=== PATIENT | female | born 1960 | race Hispanic/Latino ===

== ENCOUNTER 2016-10-10 11:19 | Inpatient (IN) | payer MEDICARE, OTHER ==
[2016-10-10] MEDS ORDERED: Sodium Chloride 0.9% 1,000 ML IV STA ×2 (11:58→16:20)
[2016-10-10 11:59] VITALS: BMI 24.3
[2016-10-10] MEDS ORDERED: Iohexol 240 (50 ml) ONE (12:06)
--- NOTE | 2016-10-10 12:14 | ED PDOC ---
Arrival/HPI - General Chief Complaint: Abdominal Pain Time Seen by Provider: 10/10/16 11:40 Historian: Patient - History of Present Illness Narrative History of Present Illness (Text): 10/10/16 12:11 55 year old female whose past medical history includes H pylori, diverticulitis , presents to the emergency department with constipation and lower abdominal pain for the past week. Patient states she has not had a bowel movement in over a week and was seen at [facility] but discharged home. She states she had a CT scan which showed her "bowels were obstructed." Patient states she has tried Miralax , Ducolax, and enema with no improvement. She states she ate a biscuit today. Denies other complaints. Patient requesting medication for anxiety. PMD: Dr. Meza Time/Duration: > week Symptom Onset: Gradual Symptom Course: Unchanged Associated Symptoms (Text): None Past Medical History - Provider Review Nursing Documentation Reviewed: Yes - Infectious Disease Hx of Infectious Diseases: None - Tetanus Immunization Tetanus Immunization: Unknown - Cardiac Hx Hypertension: Yes Hx Pacemaker: No - Neurological Hx Paralysis: No - Hematological/Oncological Hx Blood Transfusions: No - Musculoskeletal/Rheumatological Hx Musculoskeletal Disorders: Yes Other/Comment: DJD - Gastrointestinal Hx Diverticulitis: Yes Other/Comment: Hpylori - Genitourinary/Gynecological Hx Genitourinary Disorders: No - Psychiatric Hx Anxiety: Yes Hx Emotional Abuse: No Hx Physical Abuse: No Hx Substance Use: No - Surgical History Hx Section: Yes Other/Comment: breast augmentation - Anesthesia Hx Anesthesia Reactions: No Hx Malignant Hyperthermia: No - Suicidal Assessment Feels Threatened In Home Enviroment: No Family/Social History - Physician Review Nursing Documentation Reviewed: Yes Family/Social History: Unknown Family HX Smoking Status: Never Smoked Hx Alcohol Use: No Hx Substance Use: No Hx Substance Use Treatment: No Allergies/Home Meds Allergies/Adverse Reactions: Allergies iodine Allergy (Verified 10/10/16 11:35) ANAPHYLAXIS lidocaine Allergy (Verified 10/10/16 11:35) ANAPHYLAXIS CRABS Allergy (Severe, Uncoded 10/10/16 11:35) ANAPHYLAXIS Home Medications: Home Meds Medication Instructions Recorded Confirmed Alprazolam [Xanax] 2 mg PO TID 09/07/14 10/10/16 Losartan [Cozaar] 50 mg PO DAILY 10/10/16 10/10/16 Omeprazole Magnesium [Prilosec] 10 mg PO DAILY 10/10/16 10/10/16 Zolpidem [Ambien] 5 mg PO HS 10/10/16 10/10/16 Review of Systems - Physician Review All systems were reviewed & negative as marked: Yes - Review of Systems Respiratory: absent: SOB Cardiovascular: absent: Chest Pain Gastrointestinal: Abdominal Pain (lower), Constipation. absent: Diarrhea, Nausea Genitourinary Female: absent: Dysuria, Frequency, Hematuria Musculoskeletal: absent: Back Pain Physical Exam Vital Signs Reviewed: Yes Vital Signs Temp Pulse Resp BP Pulse Ox 10/10/16 17:08 64 18 115/71 98 10/10/16 15:17 66 18 111/69 98 10/10/16 13:25 68 18 112/75 98 10/10/16 12:31 69 18 116/77 98 10/10/16 11:20 98.6 F 73 15 114/69 98 Temperature: Afebrile Blood Pressure: Normal Pulse: Regular Respiratory Rate: Normal Appearance: Positive for: Well-Appearing, Non-Toxic, Comfortable Pain Distress: None Mental Status: Positive for: Alert and Oriented X 3 - Systems Exam Head: Present: Atraumatic, Normocephalic Pupils: Present: PERRL Extroacular Muscles: Present: EOMI Conjunctiva: Present: Normal Mouth: Present: Moist Mucous Membranes Neck: Present: Normal Range of Motion Respiratory/Chest: Present: Clear to Auscultation, Good Air Exchange. No: Respiratory Distress, Accessory Muscle Use Cardiovascular: Present: Regular Rate and Rhythm, Normal S1, S2. No: Murmurs Abdomen: Present: Tenderness (Mild suprapubic and LLQ tenderness), Normal Bowel Sounds. No: Distention, Peritoneal Signs Back: Present: Normal Inspection Upper Extremity: Present: Normal Inspection. No: Cyanosis, Edema Lower Extremity: Present: Normal Inspection. No: Edema Neurological: Present: GCS=15, CN II-XII Intact, Speech Normal Skin: Present: Warm, Dry, Normal Color. No: Rashes Psychiatric: Present: Alert, Oriented x 3, Normal Insight, Normal Concentration Medical Decision Making ED Course and Treatment: Impression: 55 year old female whose past medical history includes H pylori, diverticulitis, presents to the emergency department with constipation and lower abdominal pain for the past week. Differential Diagnosis include but are not limited to: Bowel obstruction vs constipation Plan: -- CT Abdomen/Pelvis, EKG -- Xanax -- IV fluids -- Labs -- Reassess and disposition Prior Visits: Notes and results from previous visits were reviewed. Patient last seen in ED on 09/07/14 for abdominal pain and discharged home. Progress Notes: - Lab Interpretations Lab Results: 10/10/16 12:00 10/10/16 12:00 Lab Results 10/10/16 14:00: Urine Color Yellow, Urine Appearance Clear, Urine pH 6.0, Ur Specific [place] 1.020, Urine Protein Negative, Urine Glucose (UA) Negative, Urine Ketones Negative, Urine Blood Negative, Urine Nitrate Negative, Urine Bilirubin Negative, Urine Urobilinogen 0.2, Ur Leukocyte Esterase Negative 10/10/16 12:00: Sodium 140, Potassium 3.7, Chloride 106, Carbon Dioxide 27, Anion Gap 11, BUN 13, Creatinine 0.7, Est GFR ( Amer) > 60, Est GFR (Non- Af Amer) > 60, Random Glucose 103, Calcium 9.6, Total Bilirubin 0.8, AST 19, ALT 30, Alkaline Phosphatase 79, Total Protein 6.8, Albumin 3.8, Globulin 2.9, Albumin/Globulin Ratio 1.3, Lipase 87 10/10/16 12:00: WBC 4.3 L D, RBC 4.49, Hgb 13.6, Hct 39.6, MCV 88.2, MCH 30.3, MCHC 34.3, RDW 12.5, Plt Count 276, MPV 10.6, Gran % 61.8, Lymph % (Auto) 31.2, [place] % (Auto) 5.3, Eos % (Auto) 1.2 L, Baso % (Auto) 0.5, Gran # 2.66, Lymph # 1.3, [place] # 0.2, Eos # 0.1, Baso # 0.02 - RAD Interpretation Radiology Orders: 10/10/16 11:58 ABD & PELVIS PO CONTRAST ONLY [CT] Stat - Medication Orders Current Medication Orders: Discontinued Medications Alprazolam (Xanax) 2 mg PO STAT STA PRN Reason: Protocol Stop: 10/10/16 12:00 Last Admin: 10/10/16 12:14 Dose: 2 mg Sodium Chloride (Sodium Chloride 0.9%) 1,000 mls @ 1,000 mls/hr IV .Q1H STA Stop: 10/10/16 12:57 Last Admin: 10/10/16 12:14 Dose: 1,000 mls/hr Sodium Chloride (Sodium Chloride 0.9%) 1,000 mls @ 999 mls/hr IV .Q1H1M STA Stop: 10/10/16 17:20 Last Admin: 10/10/16 16:34 Dose: 999 mls/hr Iohexol (Omnipaque 240 (50 Ml)) Confirm Administered Dose 50 ml .ROUTE .STK-MED ONE Stop: 10/10/16 12:07 - Scribe Statement The provider has reviewed the documentation as recorded by the Eugenia Beltran Provider Scribe Attestation: All medical record entries made by the Eugenia were at my direction and personally dictated by me. I have reviewed the chart and agree that the record accurately reflects my personal performance of the history, physical exam, medical decision making, and the department course for this patient. I have also personally directed, reviewed, and agree with the discharge instructions and disposition. Disposition/Present on Arrival - Present on Arrival Any Indicators Present on Arrival: No History of DVT/PE: No History of Uncontrolled Diabetes: No Urinary Catheter: No History of Decub. Ulcer: No History Surgical Site Infection Following: None - Disposition Have Diagnosis and Disposition been Completed?: Yes Diagnosis: Small bowel intussusception Disposition: HOSPITALIZED Disposition Time: 15:30 Condition: STABLE Referrals: Tuyet Liriano MD [Primary Care Provider] - Follow up with primary
[2016-10-10 12:18] LABS: ADD MANUAL DIFF? NO
[2016-10-10 12:40] LABS: ALB/GLOB RATIO 1.3 (1.1-1.8); ALKALINE PHOSPHATASE 79 U/L (38-133); ALT/SGPT 30 U/L (7-56); AST/SGOT 19 U/L (15-39); BILIRUBIN,TOTAL 0.8 mg/dL (0.2-1.3); BLOOD UREA NITROGEN 13 mg/dL (7-21); CALCIUM 9.6 mg/dL (8.4-10.5); CARBON DIOXIDE 27 mmol/L (21-33); CHLORIDE 106 mmol/L (98-107); GFR AFRICAN-AMERICAN > 60; GLUCOSE,RANDOM 103 mg/dL (70-110); LIPASE 87 U/L (23-300); POTASSIUM 3.7 mmol/L (3.6-5.0); SODIUM 140 mmol/L (132-148); TOTAL PROTEIN 6.8 g/dL (5.8-8.3)
[2016-10-10 12:42] LABS: BASO # 0.02 K/mm3 (0.0-2.0); BASO % 0.5 % (0.0-3.0); EOS # 0.1 (0.0-0.7); EOS % 1.2 % (1.5-5.0); GRAN # 2.66 (1.4-6.5); GRAN % 61.8 % (50.0-68.0); HEMATOCRIT 39.6 % (36.0-48.0); LYMPH # 1.3 (1.2-3.4); LYMPH % 31.2 % (22.0-35.0); MEAN CELL VOLUME 88.2 fL (80.0-105.0); MEAN CORPUSCULAR HEMOGLOBIN 30.3 pg (25.0-35.0); MEAN CORPUSCULAR HGB CONC 34.3 g/dl (31.0-37.0); MEAN PLATELET VOLUME 10.6 fl (7.0-11.0); MONO # 0.2 (0.1-0.6); MONO % 5.3 % (1.0-6.0); PLATELET COUNT 276 10^3/uL (120.0-450.0); RED CELL DISTRIBUTION WIDTH 12.5 % (11.5-14.5); WHITE BLOOD COUNT 4.3 10^3/ul (4.5-11.0)
[2016-10-10 14:14] LABS: URINE APPEARANCE CLEAR (CLEAR); URINE BILIRUBIN NEGATIVE (NEGATIVE); URINE BLOOD NEGATIVE (NEGATIVE); URINE COLOR YELLOW (YELLOW); URINE GLUCOSE (UA) NEGATIVE (NEGATIVE); URINE KETONE NEGATIVE (NEGATIVE); URINE LEUKOCYTE ESTERASE NEGATIVE Leu/uL (NEGATIVE); URINE PROTEIN NEGATIVE mg/dL (<30 mg/dL); URINE UROBILINOGEN 0.2 E.U./dL (<1 E.U./dL)
--- NOTE | 2016-10-10 15:02 | CT ---
PROCEDURE: CT Abdomen and Pelvis without IV contrast. HISTORY: lower abd pain ? obstruction vs. diverticulitis COMPARISON: CT abdomen and pelvis without IV contrast performed 09/07/14 TECHNIQUE: Contiguous axial images of the abdomen and pelvis. Oral contrast was administered. No IV contrast given. Coronal and Sagittal reformats generated and reviewed. Radiation dose: Total exam DLP = 481.77 mGy-cm. This CT exam was performed using one or more of the following dose reduction techniques: Automated exposure control, adjustment of the mA and/or kV according to patient size, and/or use of iterative reconstruction technique. FINDINGS: There is limited evaluation of the solid organs without the administration of IV contrast. LOWER THORAX: Mild right middle lobe atelectasis. There is no visible pleural effusion or pneumothorax. Limited visualization of the heart appears within normal limits of size. Small right cardiophrenic fluid. Small hiatal hernia. LIVER: Unremarkable unenhanced appearance. GALLBLADDER AND BILE DUCTS: Unremarkable unenhanced appearance. PANCREAS: Unremarkable unenhanced appearance. SPLEEN: Unremarkable unenhanced appearance. ADRENALS: Unremarkable unenhanced appearance. KIDNEYS AND URETERS: No hydronephrosis or obstructing renal calculus. BLADDER: The urinary bladder appears unremarkable. REPRODUCTIVE: Uterus is present. APPENDIX: The appendix appears within normal limits of caliber. No secondary signs of acute appendicitis. BOWEL: The stomach is nondistended. The bowel loops appear within normal limits of caliber without evidence of intestinal obstruction. Suspect small bowel intussusception within the left upper quadrant (for example, coronal image 56). Duodenal wall thickening ; correlate clinically for infectious or inflammatory etiologies. Diverticulosis of the left/rectosigmoid colon with mild wall thickening ; correlate clinically for diverticulitis. PERITONEUM: No significant free fluid. No definite free air. LYMPH NODES: No bulky lymphadenopathy identified. VASCULATURE: No aortic aneurysm. BONES: No acute osseous abnormality is detected. OTHER FINDINGS: None. IMPRESSION: Evidence of small bowel intussusception within the left upper quadrant. Duodenal wall thickening ; correlate clinically for infectious or inflammatory etiologies. Diverticulosis of the left/rectosigmoid colon with mild wall thickening ; correlate clinically for diverticulitis. Additional findings as above.
--- NOTE | 2016-10-10 18:35 | CARD ---
APPROVED REPORT EKG Measurement Heart [id number] [id number] <Conclusion> Normal sinus rhythm Normal ECG
--- NOTE | 2016-10-10 18:36 | CP.PCM.CON ---
History of Present Illness - History of Present Illness History of Present Illness: Gen Sx Consult: Dr Stringer Pt is a 55F with PMH of gastritis, IBS and depression. Pt presents to [facility] after recently being discharged from [facility]. Pt states at [facility] she was told she had an intestinal blockage, and then was discharged. She states she has not had a BM in 1 week. Currently, she denies any abdominal pain, nausea, vomiting , fevers, chills, sob, chest pain, or diarrhea. Her only complaint is constipation. She states she regularly sees Dr Eason and is currently on Linzess for her IBS. Typically it is routine for her to have at least one BM per day with the use of medications. PT is passing flatus and was tolerating diet before arrival. Pt also states she has been off of psychiatric medications and would like to speak to a psychologist. CT scan was read as intussusception so surgery was consulted. Review of Systems - Review of Systems All systems: reviewed and no additional remarkable complaints except (as per hpi ) Past Patient History - Infectious Disease Hx of Infectious Diseases: None - Tetanus Immunizations Tetanus Immunization: Unknown - Past Social History Smoking Status: Never Smoked - CARDIAC Hx Hypertension: Yes Hx Pacemaker: No - NEUROLOGICAL Hx Paralysis: No - HEMATOLOGICAL/ONCOLOGICAL Hx Blood Transfusions: No - MUSCULOSKELETAL/RHEUMATOLOGICAL Hx Musculoskeletal Disorders: Yes Other/Comment: DJD - GASTROINTESTINAL Hx Diverticulitis: Yes Other/Comment: Hpylori - GENITOURINARY/GYNECOLOGICAL Hx Genitourinary Disorders: No - PSYCHIATRIC Hx Anxiety: Yes Hx Emotional Abuse: No Hx Physical Abuse: No Hx Substance Use: No - SURGICAL HISTORY Hx Section: Yes Other/Comment: breast augmentation - ANESTHESIA Hx Anesthesia Reactions: No Hx Malignant Hyperthermia: No Meds Allergies/Adverse Reactions: Allergies Allergy/AdvReac Type Severity Reaction Status Date / Time iodine Allergy ANAPHYLAXIS Verified 10/10/16 11:35 lidocaine Allergy ANAPHYLAXIS Verified 10/10/16 11:35 CRABS Allergy Severe ANAPHYLAXIS Uncoded 10/10/16 11:35 Physical Exam - Constitutional Appears: Non-toxic, No Acute Distress - Head Exam Head Exam: NORMOCEPHALIC - ENT Exam ENT Exam: Normal Exam - Respiratory Exam Respiratory Exam: absent: Accessory Muscle Use, Respiratory Distress - Cardiovascular Exam Cardiovascular Exam: REGULAR RHYTHM. absent: Tachycardia - GI/Abdominal Exam GI & Abdominal Exam: Soft. absent: Distended, Firm, Guarding, Hernia, Mass, Rebound, Rigid, Tenderness - Rectal Exam Rectal Exam: absent: Deferred - Extremities Exam Extremities exam: Negative for: pedal edema - Neurological Exam Neurological exam: Alert, Oriented x3 - Psychiatric Exam Psychiatric exam: Normal Affect, Normal Mood - Skin Skin Exam: Normal Color, Warm Results - Vital Signs Recent Vital Signs: Last Vital Signs Temp 98.6 F 10/10/16 11:20 Pulse 64 10/10/16 17:08 Resp 18 10/10/16 17:08 BP 115/71 10/10/16 17:08 Pulse Ox 98 10/10/16 17:08 - Labs Result Diagrams: 10/10/16 12:00 10/10/16 12:00 Assessment & Plan - Assessment and Plan (Free Text) Assessment: 55F admitted for constipation; CT concerning for intussusception Plan: will give mineral oil enema pt currently asymptomatic keep NPO, IV fluids will re-evaluate in AM will d/w attending Justin Jones DO, PGY2 - Date & Time Date: 10/11/16 Time: 05:47
[2016-10-10] MEDS ORDERED: Non Formulary Medication (Alprazolam [Xanax] 0.5 MG) PO PRN (18:54)
[2016-10-10] MEDS ORDERED: Dextrose 5%/0.45% NS 1,000 ML IV SCH (19:00)
--- NOTE | 2016-10-10 20:14 | HP ---
HISTORY OF PRESENT ILLNESS: The patient is a 55-year-old patient of Dr. Carrillo who [facility] because of left lower quadrant abdominal pain going on for the last 2-3 days. The patient sta aristeo she had these symptoms for 2 days, went to [facility] and they did CAT scan, but is not aware of the results. So she was discharged without any medication. The patient said actuall y the pain started almost a week ago. The patient does mention that she has constipation going on fo r almost a week. The patient denies any fever or chills. No history of rectal bleeding, no hemoptys is, hematemesis. SIGNIFICANT PAST MEDICAL HISTORY: 1. Diverticulosis and Helicobacter pylori. 2. History of anxiety disorder. 3. Hypertension. ALLERGIES: IODINE, LIDOCAINE, AND CRAB MEAT. SOCIAL HISTORY: Denies smoking, drinking or alcohol use. REVIEW OF SYSTEMS: Significant for abdominal discomfort and constipation. PHYSICAL EXAMINATION: GENERAL: She is awake and alert, communicative. VITAL SIGNS: She is afebrile, pulse 64, respirations 18, blood pressure 115/71. LUNGS: Bilateral fair airflow, no rhonchi or crackle. HEART: S1, S2 audible. ABDOMEN: Soft. Left lower quadrant discomfort. No rebound, no guarding. NEUROLOGIC: She is awake and alert, communicative. LABORATORY DATA: WBC is 4.3, hemoglobin 13.6, hematocrit 39.6, platelet 276. Chemistry: Sodium 140 , potassium 3.7, chloride 106, CO2 27, BUN 13, creatinine 0.7, blood sugar of 103. LFTs are within n ormal limits. Urinalysis is unremarkable. She had CT scan of the abdomen and pelvis done that shows evidence of small bowel intussusception within the left upper quadrant, there is no wall thickening, diverticulosis of the rectosigmoid colon with mild wall thickening. ASSESSMENT: 1. Questionable diverticulitis. 2. Intussusception left upper quadrant. 3. Anxiety disorder. 4. Hypertension. 5. Small bowel intussusception in the left upper quadrant. PLAN: We will keep patient n.p.o., give IV fluids, Protonix 40 IV has been requested, Zofran as need ed. GI consult by Dr. Eldridge and surgical consult by Dr. Brennan has been requested. Will reeval uate the patient in a.m. Silvina Wright MD cc: [phone] TT: 10/10/2016 20:13:02 jn
[2016-10-10] MEDS ORDERED: Mineral Oil Enema 135 ml RC ONE (20:35)
[2016-10-10] MEDS: metroNIDAZOLE IV 500 mg/100 ml 500 MG/100 ML BAG IVPB SCH (22:12)
[2016-10-11] MEDS: metroNIDAZOLE IV 500 mg/100 ml 500 MG/100 ML BAG IVPB SCH ×3 (05:46→21:42)
--- NOTE | 2016-10-11 06:19 | CP.PCM.PN ---
Subjective - Date & Time of Evaluation Date of Evaluation: 10/11/16 Time of Evaluation: 06:17 - Subjective Subjective: Gen Sx: Dr Stringer Pt S&E. NAEO. Reports unable to sleep. Requesting psychiatric evaluation. Pt did not have BM after enema. Denies abdominal pain, n/v, f/c. Passing flatus. Objective - Vital Signs/Intake and Output Vital Signs (last 24 hours): Temp Pulse Resp BP Pulse Ox 98 F 58 L 18 137/90 100 10/10/16 18:15 10/10/16 18:15 10/10/16 18:15 10/10/16 18:15 10/10/16 18:15 Intake and Output: 10/10/16 10/11/16 18:59 06:59 Intake Total 0 Balance 0 - Medications Medications: Current Medications Alprazolam (Xanax) 0.5 mg PO TID PRN PRN Reason: Anxiety Last Admin: 10/10/16 22:12 Dose: 0.5 mg Dextrose/Sodium Chloride (Dextrose 5%/0.45% Ns 1000 Ml) 1,000 mls @ 100 mls/hr IV .Q10H IAN Metronidazole (Flagyl) 500 mg in 100 mls @ 100 mls/hr IVPB Q8 IAN PRN Reason: Protocol Last Admin: 10/11/16 05:46 Dose: 100 mls/hr Ceftriaxone Sodium (Rocephin 1 Gram Ivpb) 1 gm in 100 mls @ 100 mls/hr IVPB DAILY IAN PRN Reason: Protocol Ondansetron HCl (Zofran Inj) 4 mg IVP Q6H PRN PRN Reason: Nausea/Vomiting Pantoprazole Sodium (Protonix Inj) 40 mg IVP DAILY [facility] Zolpidem Tartrate (Ambien) 5 mg PO HS IAN PRN Reason: Protocol Last Admin: 10/10/16 22:32 Dose: 5 mg - Constitutional Appears: Non-toxic, No Acute Distress - Head Exam Head Exam: NORMOCEPHALIC - ENT Exam ENT Exam: Mucous Membranes Moist - Respiratory Exam Respiratory Exam: absent: Accessory Muscle Use, Respiratory Distress - GI/Abdominal Exam GI & Abdominal Exam: Soft, Normal Bowel Sounds. absent: Distended, Firm, Guarding, Rigid, Tenderness, Hernia, Mass - Neurological Exam Neurological Exam: Alert, Awake, Oriented x3 - Psychiatric Exam Psychiatric exam: Anxious - Skin Skin Exam: Normal Color, Warm Assessment and Plan - Assessment and Plan (Free Text) Assessment: 55F with constipation; r/o intussusception Plan: maintain NPO w/ IV fluids continue to monitor will re-evaluate throughout the day recc. psych consult further recommendations to follow will d/w Dr Myke Jones, DO, PGY2
[2016-10-11 07:34] LABS: ADD MANUAL DIFF? NO
[2016-10-11 07:41] LABS: BASO # 0.02 K/mm3 (0.0-2.0); BASO % 0.5 % (0.0-3.0); EOS # 0.1 (0.0-0.7); EOS % 1.9 % (1.5-5.0); GRAN # 1.68 (1.4-6.5); GRAN % 39.6 % (50.0-68.0); HEMATOCRIT 35.2 % (36.0-48.0); LYMPH # 2.1 (1.2-3.4); LYMPH % 50.5 % (22.0-35.0); MEAN CELL VOLUME 87.8 fL (80.0-105.0); MEAN CORPUSCULAR HEMOGLOBIN 29.4 pg (25.0-35.0); MEAN CORPUSCULAR HGB CONC 33.5 g/dl (31.0-37.0); MEAN PLATELET VOLUME 10.1 fl (7.0-11.0); MONO # 0.3 (0.1-0.6); MONO % 7.5 % (1.0-6.0); PLATELET COUNT 223 10^3/uL (120.0-450.0); RED CELL DISTRIBUTION WIDTH 12.5 % (11.5-14.5); WHITE BLOOD COUNT 4.2 10^3/ul (4.5-11.0)
[2016-10-11 07:58] LABS: ALB/GLOB RATIO 1.2 (1.1-1.8); ALKALINE PHOSPHATASE 67 U/L (38-133); ALT/SGPT 38 U/L (7-56); AST/SGOT 17 U/L (15-39); BILIRUBIN,TOTAL 0.8 mg/dL (0.2-1.3); BLOOD UREA NITROGEN 7 mg/dL (7-21); CALCIUM 8.7 mg/dL (8.4-10.5); CARBON DIOXIDE 24 mmol/L (21-33); CHLORIDE 109 mmol/L (95-110); GFR AFRICAN-AMERICAN > 60; GLUCOSE,RANDOM 89 mg/dL (70-110); POTASSIUM 3.5 mmol/L (3.6-5.0); SODIUM 139 mmol/L (132-148); TOTAL PROTEIN 5.6 g/dL (5.8-8.3)
[2016-10-11 08:20] LABS: FREE T4 1.09 ng/dL (0.78-2.19)
[2016-10-11 08:34] LABS: THYROID STIMULATING HORMONE 2.16 mIU/mL (0.46-4.68)
[2016-10-11] MEDS: cefTRIAXone 1 gm 1 GM/100 ML BAG IVPB SCH (09:44)
[2016-10-11] MEDS ORDERED: Non Formulary Medication (Alprazolam [Xanax] 0.5 MG) PO SCH (10:00)
--- NOTE | 2016-10-11 11:01 | RAD ---
HISTORY: r/o obstruction COMPARISON: No prior. FINDINGS: BOWEL: Normal. No obstruction. No free air. There is some residual contrast in the colon which is normal in caliber. BONES: Normal. OTHER FINDINGS: None. IMPRESSION: No active disease.
--- NOTE | 2016-10-11 12:53 | CP.PCM.CON ---
<Stiven Chaparro - Last Filed: 10/11/16 16:14> History of Present Illness - History of Present Illness History of Present Illness: GI consult for Dr. Eldridge Pt is a 55F with PMH of Colon Polyps, gastritis, IBS and depression presents to [facility] with constipation. Pt states she was recently [place] [facility] [place] and then was discharged with OTC enema. She states she has not had a BM in 1 week. Currently, she denies any abdominal pain, nausea, vomiting , fevers, chills, sob, chest pain, or diarrhea. She states she regularly sees Dr Eason and is currently on Linzess for her IBS. Typically it is routine for her to have at least one BM per day with the use of medications. PT is passing flatus and was tolerating diet before arrival. Pt also states she has been off of psychiatric medications and would like to speak to a psychologist. CT scan was read as intussusception. PMH: Colon polyps, Gastiritis, H-pylori, IBS PSH: c-scope, EGD, , Ovarian cyst removal Fx: Colon CA Review of Systems - Review of Systems Review of Systems: See HPI Past Patient History - Infectious Disease Hx of Infectious Diseases: None - Tetanus Immunizations Tetanus Immunization: Unknown - Past Social History Smoking Status: Never Smoked - CARDIAC Hx Hypertension: Yes Hx Pacemaker: No - NEUROLOGICAL Hx Paralysis: No - HEMATOLOGICAL/ONCOLOGICAL Hx Blood Transfusions: No - MUSCULOSKELETAL/RHEUMATOLOGICAL Hx Musculoskeletal Disorders: Yes Other/Comment: DJD - GASTROINTESTINAL Hx Diverticulitis: Yes Other/Comment: Hpylori - GENITOURINARY/GYNECOLOGICAL Hx Genitourinary Disorders: No - PSYCHIATRIC Hx Anxiety: Yes Hx Emotional Abuse: No Hx Physical Abuse: No Hx Substance Use: No - SURGICAL HISTORY Hx Section: Yes Other/Comment: breast augmentation - ANESTHESIA Hx Anesthesia Reactions: No Hx Malignant Hyperthermia: No Meds Allergies/Adverse Reactions: Allergies Allergy/AdvReac Type Severity Reaction Status Date / Time iodine Allergy ANAPHYLAXIS Verified 10/10/16 11:35 lidocaine Allergy ANAPHYLAXIS Verified 10/10/16 11:35 CRABS Allergy Severe ANAPHYLAXIS Uncoded 10/10/16 11:35 - Medications Medications: Current Medications Alprazolam (Xanax) 0.5 mg PO TID PRN PRN Reason: Anxiety Last Admin: 10/11/16 09:48 Dose: 0.5 mg Dextrose/Sodium Chloride (Dextrose 5%/0.45% Ns 1000 Ml) 1,000 mls @ 100 mls/hr IV .Q10H [facility] Last Admin: 10/11/16 09:39 Dose: 100 mls/hr Metronidazole (Flagyl) 500 mg in 100 mls @ 100 mls/hr IVPB Q8 IAN PRN Reason: Protocol Last Admin: 10/11/16 05:46 Dose: 100 mls/hr Ceftriaxone Sodium (Rocephin 1 Gram Ivpb) 1 gm in 100 mls @ 100 mls/hr IVPB DAILY IAN PRN Reason: Protocol Last Admin: 10/11/16 09:44 Dose: 100 mls/hr Ondansetron HCl (Zofran Inj) 4 mg IVP Q6H PRN PRN Reason: Nausea/Vomiting Pantoprazole Sodium (Protonix Inj) 40 mg IVP DAILY [facility] Last Admin: 10/11/16 09:42 Dose: 40 mg Zolpidem Tartrate (Ambien) 5 mg PO HS [facility] PRN Reason: Protocol Last Admin: 10/10/16 22:32 Dose: 5 mg Results - Vital Signs Recent Vital Signs: Last Vital Signs Temp 98.4 F 10/11/16 08:00 Pulse 64 10/11/16 08:00 Resp 20 10/11/16 08:00 BP 110/73 10/11/16 08:00 Pulse Ox 95 10/11/16 08:00 - Labs Result Diagrams: 10/11/16 07:30 10/11/16 07:30 Labs: Laboratory Results - last 24 hr 10/11/16 10/11/16 10/11/16 07:30 07:30 07:30 WBC 4.2 L RBC 4.01 Hgb 11.8 L Hct 35.2 L MCV 87.8 MCH 29.4 MCHC 33.5 RDW 12.5 Plt Count 223 MPV 10.1 Gran % 39.6 L Lymph % (Auto) 50.5 H [place] % (Auto) 7.5 H Eos % (Auto) 1.9 Baso % (Auto) 0.5 Gran # 1.68 Lymph # 2.1 [place] # 0.3 Eos # 0.1 Baso # 0.02 Sodium 139 Potassium 3.5 L Chloride 109 Carbon Dioxide 24 Anion Gap 10 BUN 7 Creatinine 0.7 Est GFR ( Amer) > 60 Est GFR (Non-Af Amer) > 60 Random Glucose 89 Calcium 8.7 Magnesium 2.0 Total Bilirubin 0.8 AST 17 ALT 38 Alkaline Phosphatase 67 Total Protein 5.6 L Albumin 3.1 Globulin 2.5 Albumin/Globulin Ratio 1.2 Free T4 1.09 TSH 3rd Generation 2.16 Assessment & Plan - Assessment and Plan (Free Text) Assessment: Constipation, partial obstruction, r/o Intussusception CT: intussusception AXR: shows contrast in colon no relief with Oil enema /OTC enema -Possible colonoscopy tomorrow after bowel prep -NPO -IVF -Surgery on board: recommends c-scope to evaluate ileocecal valve. NAM Eldridge <Aster Eldridge V - Last Filed: 11/29/16 18:18> Physical Exam - Constitutional Appears: No Acute Distress - Head Exam Head Exam: NORMOCEPHALIC - Eye Exam Eye Exam: Normal appearance - ENT Exam ENT Exam: Mucous Membranes Moist - Neck Exam Neck exam: Positive for: Normal Inspection - Respiratory Exam Respiratory Exam: Clear to Auscultation Bilateral, NORMAL BREATHING PATTERN - Cardiovascular Exam Cardiovascular Exam: +S1, +S2 - GI/Abdominal Exam GI & Abdominal Exam: Soft Additional comments: (+) tenderness, no rebound or guarding - Extremities Exam Extremities exam: Positive for: normal inspection, pedal pulses present - Neurological Exam Neurological exam: Alert, Oriented x3 - Skin Skin Exam: Dry, Warm Results - Vital Signs Recent Vital Signs: Last Vital Signs Temp 97.9 F 10/13/16 07:30 Pulse 62 10/13/16 07:30 Resp 20 10/13/16 07:30 BP 110/78 10/13/16 07:30 Pulse Ox 98 10/13/16 07:30 - Labs Result Diagrams: 10/12/16 07:40 10/12/16 07:40 Assessment & Plan - Assessment and Plan (Free Text) Assessment: ADDENDUM to the consult of Dr. Chaparro, see dictated note.
--- NOTE | 2016-10-11 14:03 | CON ---
DATE: 10/11/2016 Shortly, patient is a 55-year-old female, self-reported history of depression and anxiety a s well as ADHD. The patient was admitted on the medical side for possible colon intussusception, whi ch was ruled out. Psych consult was called for evaluation of mood symptoms as well as patient is on psychotropic medications. The patient was seen and examined. Medications were confirmed by pharmacy . The patient is using 2 pharmacies, and [phone]. The patient was prescribed Ambi en 10 mg at the nighttime by Dr. Amin, 30-day supply was given on 10/06. The patient was on Adderal l 30 mg twice a day, same prescriber, 60 pills were given on 09/17, Klonopin 2 mg 3 times a day by the same prescriber, filled on and Suboxone was changed for by and patient filled t hat medication in September. The patient presented to be emotionally labile. Thought process was circumst antial and tangential. The patient was talking about her relationship problems as well as that her d og recently. The patient reported that she does not feel that her psychiatrist is helpin g her, obviously splitting staff. The patient was interested to see other psychiatrist. The patient also reported that she was feeling depressed, but adamantly denied thoughts of killing herself or ot hers. Denied hearing voices, denied seeing things, denied paranoid ideations. The patient does not present to be psychotic, but oddly related to this singer songwriter. The patient denied using drugs, denied us ing alcohol. The patient denied history of being admitted to the psychiatric inpatient unit. VITAL SIGNS: Reviewed. MEDICATIONS: Reviewed. LABORATORIES: Reviewed. Had prolonged conversation with Dr. Brennan today. The patient does not have any intussusception an d patient does not need to go to the surgery as of now. MENTAL STATUS EXAMINATION: The patient presented to be alert and oriented, pleasant, superficially c ooperative. Speech was over-productive. The patient had difficulty to stay focused. Thought proces s was circumstantial and tangential. Mood described as depressed. Thought content: The patient den ied visual, auditory, or tactile hallucinations. Denied paranoid ideation. Denied thoughts of harmi ng herself or others, denied intent or plan. Insight and judgment are fair. Impulses are well contr olled. IMPRESSION: Most likely, patient has history of borderline personality disorder. There is some stro ng traits. As per patient, she has history of major depressive disorder. The patient denied history of being admitted to the psychiatric inpatient unit. PLAN: Continue current management. Medications confirmed. The patient was on Klonopin 2 mg 3 times a day. There is no need for Adderall to be resumed. Ambien was 10 mg at the nighttime. It can be continued. The patient expressed her interest to go to other psychiatrist at [place]. Dr. Fernandez's contact information was provided to the patient. The patient has outpatient provider already . The patient wanted to have therapist. This singer songwriter advised to call to her insurance company and as k who is the provider in the insurance network. Meanwhile, patient is not suicidal, not homicidal, n ot psychotic. Would benefit from the therapy. This singer songwriter will sign off. Thank you very much for letting me participate in care of your patient. Nica Haro MD cc: [phone] TT: 10/11/2016 14:03:25 Confirmation # [id number] Dictation # [id number] en
[2016-10-11] MEDS ORDERED: Peg-Electrolyte Oral Soln 4L (Golytely) PO ONE (14:49)
--- NOTE | 2016-10-11 18:34 | PN ---
DATE: 10/11/2016 SUBJECTIVE: The patient is a 55-year-old, seen and examined, doing well. She states her pain has ki nd of subsided. She did not have any bowel movement, not passing gas, was given clear liquid that sh e tolerated. PHYSICAL EXAMINATION: VITAL SIGNS: He is afebrile, pulse 64, respirations 20, blood pressure 110/ . LUNGS: Bilateral fair airflow, no rhonchi or crackle. HEART: S1, S2 audible. ABDOMEN: Soft and has left lower quadrant discomfort. She also has the discomfort in the right lower quadrant. The patient states she did not have bowel movement for almost 5-7 days. NEUROLOGIC: The patient is awake and alert. LABORATORY EXAMINATION: WBC is 4.2, hemoglobin 11.8, hematocrit 35.2, platelet of 223. Chemistry: Sodium 139, potassium 3.5, chloride 109, CO2 24, BUN 7, creatinine 0.7, blood sugar of 89. X-ray abby t was done today shows no active disease. ASSESSMENT: 1. Abdominal pain, questionable intussusception. 2. Acute on chronic constipation. 3. History of bipolar disorder. 4. History of depression and anxiety. 5. History of chronic back pain. 6. History of peptic ulcer disease. PLAN: The patient is currently on IV fluid. She is on metronidazole. She was given enema wit h no significant improvement. She has been started on GoLYTELY and if she gets cleaned out, she will get colonoscopy done tomorrow. She was evaluated by Dr. Yousif and has been started on Klonopin. We w ill continue her on Xanax as needed. We will reevaluate the patient in the a.m. Silvina Wright MD cc: [phone] TT: 10/11/2016 18:33:18 Confirmation # [id number] Dictation # [id number] ln
[2016-10-11] MEDS ORDERED: Magnesium Citrate Oral SOL (300 ml) PO ONE (20:16)
--- NOTE | 2016-10-12 01:38 | PN ---
DATE: 10/11/2016 ADDENDUM This patient was seen and evaluated earlier. This is an addendum to the GI progress report dictated by Dr. Chaparro, surgical brace maker. The patient still complains of some mild discomfort in the right lowe r quadrant area. There is no rebound or guarding. The CAT scan was reviewed. This is an addendum to the GI consult. Consultation report reviewed. The patient clearly shows intu ssusception, etiology is unclear. The patient has a history of colon polyps and family history of mu ltiple cancers. I have discussed with Dr. Stringer, the surgeon. The plan is to consider colonos copy to further evaluate the colon and terminal ileum. We will continue to closely follow up his car e and suggest further management based on the clinical course. I also discussed with Dr. Stringer , the surgeon and also with Dr. Wright. Aster Eldridge MD cc: [phone] TT: 10/12/2016 01:37:34 Confirmation # [id number] Dictation # [id number] an
[2016-10-12] MEDS: metroNIDAZOLE IV 500 mg/100 ml 500 MG/100 ML BAG IVPB SCH ×3 (07:02→21:10)
[2016-10-12 07:54] LABS: ADD MANUAL DIFF? NO
[2016-10-12 07:59] LABS: BASO # 0.05 K/mm3 (0.0-2.0); BASO % 1.1 % (0.0-3.0); EOS # 0.2 (0.0-0.7); EOS % 3.3 % (1.5-5.0); GRAN # 2.07 (1.4-6.5); HEMATOCRIT 36.5 % (36.0-48.0); LYMPH # 1.9 (1.2-3.4); MEAN CELL VOLUME 87.3 fL (80.0-105.0); MEAN CORPUSCULAR HEMOGLOBIN 29.9 pg (25.0-35.0); MEAN CORPUSCULAR HGB CONC 34.2 g/dl (31.0-37.0); MEAN PLATELET VOLUME 10.5 fl (7.0-11.0); MONO # 0.3 (0.1-0.6); MONO % 7.6 % (1.0-6.0); PLATELET COUNT 240 10^3/uL (120.0-450.0); RED CELL DISTRIBUTION WIDTH 12.5 % (11.5-14.5); WHITE BLOOD COUNT 4.5 10^3/ul (4.5-11.0)
[2016-10-12 08:09] LABS: INR 0.96 (0.93-1.08); PARTIAL THROMBOPLASTIN TIME 25.5 Seconds (23.7-30.8)
[2016-10-12 08:10] LABS: ALB/GLOB RATIO 1.3 (1.1-1.8); ALKALINE PHOSPHATASE 78 U/L (38-133); ALT/SGPT 38 U/L (7-56); AST/SGOT 19 U/L (15-39); BILIRUBIN,TOTAL 0.7 mg/dL (0.2-1.3); BLOOD UREA NITROGEN 4 mg/dL (7-21); CALCIUM 9.1 mg/dL (8.4-10.5); CARBON DIOXIDE 27 mmol/L (21-33); CHLORIDE 107 mmol/L (95-110); GFR AFRICAN-AMERICAN > 60; GLUCOSE,RANDOM 89 mg/dL (70-110); POTASSIUM 3.7 mmol/L (3.6-5.0); SODIUM 141 mmol/L (132-148); TOTAL PROTEIN 6.2 g/dL (5.8-8.3)
--- NOTE | 2016-10-12 09:57 | CP.PCM.PN ---
<Lew Hathaway - Last Filed: 10/12/16 09:52> Subjective - Date & Time of Evaluation Date of Evaluation: 10/12/16 Time of Evaluation: 09:52 - Subjective Subjective: General surgery progress note for Lew Pineda PGY1 Patient seen and examined at bedside this morning in conjunction with surgical team. No acute overnight events or new complaints. Denies abdominal pain, nausea , vomiting, fever, chills. Patient is scheduled for colonoscopy later today, will follow up results. Objective - Vital Signs/Intake and Output Vital Signs (last 24 hours): Temp Pulse Resp BP Pulse Ox 97.7 F 86 20 120/89 100 10/12/16 08:12 10/12/16 08:12 10/12/16 08:12 10/12/16 08:12 10/12/16 08:12 Intake and Output: 10/12/16 10/12/16 06:59 18:59 Intake Total 860 Balance 860 - Medications Medications: Current Medications Alprazolam (Xanax) 0.5 mg PO TID PRN PRN Reason: Anxiety Last Admin: 10/11/16 19:53 Dose: 0.5 mg Clonazepam (Klonopin) 2 mg PO TID PRN; Protocol PRN Reason: Anxiety Last Admin: 10/11/16 23:36 Dose: 2 mg Dextrose/Sodium Chloride (Dextrose 5%/0.45% Ns 1000 Ml) 1,000 mls @ 100 mls/hr IV .Q10H [facility] Last Admin: 10/11/16 09:39 Dose: 100 mls/hr Metronidazole (Flagyl) 500 mg in 100 mls @ 100 mls/hr IVPB Q8 IAN PRN Reason: Protocol Last Admin: 10/12/16 07:02 Dose: 100 mls/hr Ceftriaxone Sodium (Rocephin 1 Gram Ivpb) 1 gm in 100 mls @ 100 mls/hr IVPB DAILY IAN PRN Reason: Protocol Last Admin: 10/11/16 09:44 Dose: 100 mls/hr Ondansetron HCl (Zofran Inj) 4 mg IVP Q6H PRN PRN Reason: Nausea/Vomiting Last Admin: 10/12/16 01:23 Dose: 4 mg Pantoprazole Sodium (Protonix Inj) 40 mg IVP DAILY [facility] Last Admin: 10/11/16 09:42 Dose: 40 mg Zolpidem Tartrate (Ambien) 5 mg PO HS [facility] PRN Reason: Protocol Last Admin: 10/11/16 23:36 Dose: 5 mg - Labs Labs: 10/12/16 07:40 10/12/16 07:40 PT 10.4 Seconds (9.9-11.8) 10/12/16 07:40 INR 0.96 (0.93-1.08) 10/12/16 07:40 APTT 25.5 Seconds (23.7-30.8) 10/12/16 07:40 - Constitutional Appears: Non-toxic, No Acute Distress - Head Exam Head Exam: ATRAUMATIC, NORMAL INSPECTION, NORMOCEPHALIC - Eye Exam Eye Exam: EOMI, PERRL - ENT Exam ENT Exam: Mucous Membranes Moist - Respiratory Exam Respiratory Exam: absent: Accessory Muscle Use, Rales, Rhonchi, Wheezes - Cardiovascular Exam Cardiovascular Exam: RRR, +S1, +S2. absent: Gallop, Rubs - GI/Abdominal Exam GI & Abdominal Exam: Soft. absent: Firm, Guarding, Rigid, Tenderness, Rebound - Neurological Exam Neurological Exam: Alert, Awake, Oriented x3 Assessment and Plan - Assessment and Plan (Free Text) Plan: 55yo female with history of gastritis presents c/o constipation. Surgical evaluation requested for possible intussusception -Continue with NPO with IV fluids -Patient being evaluated by GI and to undergo colonscopy later today, will follow up on results -Serial abdominal exams -No acute surgical intervention recommended at this time Further recommendations per attending, Dr. Myke Hathaway DO PGY1 <Justin Jones - Last Filed: 10/12/16 16:11> Objective - Vital Signs/Intake and Output Vital Signs (last 24 hours): Temp Pulse Resp BP Pulse Ox 97.7 F 59 L 16 118/76 99 10/12/16 15:23 10/12/16 15:23 10/12/16 15:23 10/12/16 15:23 10/12/16 15:23 Intake and Output: 10/12/16 10/12/16 06:59 18:59 Intake Total 860 75 Balance 860 75 - Medications Medications: Current Medications Alprazolam (Xanax) 0.5 mg PO TID PRN PRN Reason: Anxiety Last Admin: 10/11/16 19:53 Dose: 0.5 mg Clonazepam (Klonopin) 2 mg PO TID PRN; Protocol PRN Reason: Anxiety Last Admin: 10/12/16 10:53 Dose: 2 mg Hydromorphone HCl (Dilaudid) 1 mg IVP Q4H PRN PRN Reason: Pain, moderate (4-7) Last Admin: 10/12/16 13:10 Dose: 1 mg Dextrose/Sodium Chloride (Dextrose 5%/0.45% Ns 1000 Ml) 1,000 mls @ 100 mls/hr IV .Q10H [facility] Last Admin: 10/11/16 09:39 Dose: 100 mls/hr Metronidazole (Flagyl) 500 mg in 100 mls @ 100 mls/hr IVPB Q8 IAN PRN Reason: Protocol Last Admin: 10/12/16 13:09 Dose: 100 mls/hr Ceftriaxone Sodium (Rocephin 1 Gram Ivpb) 1 gm in 100 mls @ 100 mls/hr IVPB DAILY IAN PRN Reason: Protocol Last Admin: 10/12/16 10:53 Dose: 100 mls/hr Lactated Ringer's (Lactated Ringer's) 1,000 mls @ 75 mls/hr IV .[id number] [facility] Ondansetron HCl (Zofran Inj) 4 mg IVP Q6H PRN PRN Reason: Nausea/Vomiting Last Admin: 10/12/16 01:23 Dose: 4 mg Pantoprazole Sodium (Protonix Inj) 40 mg IVP DAILY [facility] Last Admin: 10/12/16 10:53 Dose: 40 mg Zolpidem Tartrate (Ambien) 5 mg PO HS IAN PRN Reason: Protocol Last Admin: 10/11/16 23:36 Dose: 5 mg - Labs Labs: 10/12/16 07:40 10/12/16 07:40 PT 10.4 Seconds (9.9-11.8) 10/12/16 07:40 INR 0.96 (0.93-1.08) 10/12/16 07:40 APTT 25.5 Seconds (23.7-30.8) 10/12/16 07:40 Assessment and Plan - Assessment and Plan (Free Text) Plan: C-scope normal. OK for discharge. Outpatient follow up with primary and GI. No surgical intervention necessary
[2016-10-12] MEDS: cefTRIAXone 1 gm 1 GM/100 ML BAG IVPB SCH (10:53)
[2016-10-12] MEDS: HYDROmorphone 1 mg/ml ISec IVP PRN ×3 (13:10→22:54)
--- NOTE | 2016-10-12 13:52 | PN ---
DATE: 10/12/2016 The patient entered the hospital with constipation of over 1 week and intermittent abdominal cramping with nausea and the possibility of some vomiting. The patient underwent CAT scanning demonstrating on a coronal view a small bowel intussusception in the left upper quadrant. The patient's symptomato logy has been in the right lower quadrant and on review of the CAT scan with the oral contrast, there is a suspicion of ileum invaginating into the cecum. The patient became totally asymptomatic at thi s point and requires no pain medicine at all. Shortly after admission, the family requested a change in surgical consult to Dr. Tae Stringer and this surgeon no longer will be participating in the care of this patient. The sharepoint engineer (Dr. Tanya Eldridge) feels the patient probably has an intussusception and is pre paring the patient now for colonoscopy today if possible. The difficulty has been that the patient h as been unable to take the oral preparation and enemas have been essentially noneffective in cleaning out the colon. If the patient can have the colonoscopy, this will probably resolve the issue of an intussusception involving the colon and/or terminal ileum if it can be intubated. In the meantime, this surgeon will remain available at any time for any assistance he may offer. This dictation will be electronically signed without being read. Shaw Brennan MD cc: [id number] TT: 10/12/2016 13:51:36 Confirmation # [id number] Dictation # [id number] en
[2016-10-12] MEDS ORDERED: Lactated Ringer's 1,000 ML IV SCH (14:25)
[2016-10-12] MEDS ORDERED: Propofol 10 mg/ml Inj (20 ML) ONE (14:28)
[2016-10-12 17:13] VITALS: RESP 20
--- NOTE | 2016-10-12 20:17 | PN ---
DATE: 10/12/2016 SUBJECTIVE: The patient is a 55-year-old, seen and examined. She states her pain seems to be subsid ing, but she feels that she is getting into withdrawal because she was on Suboxone up until yesterday . She is requesting for something to replace that. Otherwise, she is doing better. She is being pr epped for colonoscopy. PHYSICAL EXAMINATION: GENERAL: She is awake and alert, communicative. VITAL SIGNS: She is afebrile, pulse 54, respirations 20, blood pressure 117/77. LUNGS: Bilateral fair airflow, no rhonchi or crackle. HEART: S1, S2 audible. ABDOMEN: Soft, nontender, no rebound, no guarding. NEUROLOGIC: She is awake and alert, communicative. LABORATORY EXAMINATION: WBC is 4.5, hemoglobin 12.5, hematocrit 36, platelets of 240. PT 10.4, INR 0.96. Chemistry: Sodium 141, potassium 3.7, chloride 107, CO2 27, BUN 4, creatinine 0.7, blood suga r of 89. Urinalysis is negative. ASSESSMENT AND PLAN: 1. Abdominal pain with intussusception. 2. History of narcotic dependence, currently on Suboxone as outpatient. 3. Hypertension. 4. Chronic degenerative disk disease. 5. Anxiety disorder. 6. Chronic constipation, probably secondary to narcotics. PLAN: I got a call from Dr. Eldridge. The patient had colonoscopy done and it was unremarkable, no polyps found. He is suggesting to advance diet. If patient remains asymptomatic, she will be discha rged home in the a.m. and she should follow up with GI as outpatient. He is recommending for repeat colonoscopy and MR enteroscopy that can be done as outpatient. Silvina Wright MD cc: [id number] TT: 10/12/2016 20:17:30 Confirmation # [id number] Dictation # [id number] solange
[2016-10-13] MEDS: HYDROmorphone 1 mg/ml ISec IVP PRN ×2 (05:43→09:56)
[2016-10-13] MEDS: metroNIDAZOLE IV 500 mg/100 ml 500 MG/100 ML BAG IVPB SCH (05:45)
--- NOTE | 2016-10-13 06:05 | PN ---
DATE: 10/12/2016 SUBJECTIVE: This patient was seen and evaluated earlier. The patient had no complaints. Did not complete the full po colon preparation, but had multiple enemas for prep.. PHYSICAL EXAMINATION: ABDOMEN: Soft. No tenderness. This 55-year-old patient was admitted with abdominal pain. CT was suggestive of ileocecal intussusception. The patient now prepared for colonoscopy. Informed consent was obtained, proceed with the colonoscopy. Colonoscopy revealed only diverticulosis and internal hemorrhoids. The scope was advanced all the way into the terminal ileum. No other abnormalities noticed otherwise, This patient with an ileocecal intussusception now appears to have reduced completely and the terminal ileal area appears unremarkable, but i the scope was advanced only up to 15 cm, the reasonable thing at this point to be done for the patient is to have an outpatient CT enterography or MR enterography. We will suggest the MRI enteroscopy to further evaluate the small intestine. This was explained to the patient post-procedure on the floor. The patient fully understood: I also discussed with Dr. Wright. The patient is planned to be discharged in a.m. if the patient is tolerating soft diet. Advised to get copies of the hospital. Admission and to follow up with the primary doctor, arrange further GI followup and also followup MR enterography as an outpatient. Thank you very much for allowing me to participate in the care of the patient. Aster Eldridge MD cc: [id number] TT: 10/13/2016 06:04:46 Confirmation # [id number] Dictation # [id number] kanwal ANDREW
[2016-10-13 07:51] VITALS: BP 110/78; PULSE 62; TEMP 97.9; O2SAT 98
[2016-10-13] MEDS: cefTRIAXone 1 gm 1 GM/100 ML BAG IVPB SCH (09:58)
--- NOTE | 2016-10-14 01:16 | CP.PCM.PN ---
Subjective - Date & Time of Evaluation Date of Evaluation: 10/13/16 Time of Evaluation: 10:45 - Subjective Subjective: Abdominal pain better, no N/V, Sob or chest pain. No acute distress. Objective - Vital Signs/Intake and Output Vital Signs (last 24 hours): Temp Pulse Resp BP Pulse Ox 97.9 F 62 20 110/78 98 10/13/16 07:30 10/13/16 07:30 10/13/16 07:30 10/13/16 07:30 10/13/16 07:30 Intake and Output: 10/13/16 10/14/16 18:59 06:59 Intake Total 600 Balance 600 - Labs Labs: 10/12/16 07:40 10/12/16 07:40 PT 10.4 Seconds (9.9-11.8) 10/12/16 07:40 INR 0.96 (0.93-1.08) 10/12/16 07:40 APTT 25.5 Seconds (23.7-30.8) 10/12/16 07:40 - Constitutional Appears: No Acute Distress - Eye Exam Eye Exam: Normal appearance - ENT Exam ENT Exam: Mucous Membranes Moist - Neck Exam Neck Exam: Normal Inspection - Respiratory Exam Respiratory Exam: NORMAL BREATHING PATTERN - Cardiovascular Exam Cardiovascular Exam: +S1, +S2 - GI/Abdominal Exam GI & Abdominal Exam: Soft, Normal Bowel Sounds Additional comments: improve tenderness - Extremities Exam Extremities Exam: Normal Inspection - Neurological Exam Neurological Exam: Alert, Awake, Oriented x3 - Skin Skin Exam: Dry, Warm Assessment and Plan - Assessment and Plan (Free Text) Assessment: ASSESSMENT: This 55-year-old patient was admitted with abdominal pain. CT was suggestive of ileocecal intussusception. Colonoscopy revealed only diverticulosis and internal hemorrhoids. This patient with an ileocecal intussusception now appears to have reduced completely and the terminal ileal area appears unremarkable. PLAN: The patient is planned to be discharged in a.m. if the patient is tolerating soft diet. Advised to get copies of the hospital. Admission and to follow up with the primary doctor, arrange further GI followup and also followup MR enterography as an outpatient. Plan:
--- NOTE | 2016-10-16 08:22 | DS ---
The patient is a 55-year-old, seen and examined, doing well, eating and tolerating. No nausea, vomit ing, no diarrhea. PHYSICAL EXAMINATION: VITAL SIGNS: The patient is afebrile, pulse 62, respirations 20, blood pressure 110/78. LUNGS: Bilateral good airflow, no rhonchi or crackle. HEART: S1, S2 audible. ABDOMEN: Soft, nontender, no rebound, no guarding. NEUROLOGIC: The patient is awake and alert, able to communicate, ambulatory. LABORATORY EXAM: There is no new lab available today. ASSESSMENT: 1. Abdominal pain with intussusception at ileocolic area, status post colonoscopy that is unremarkab le. 2. Chronic constipation. 3. History of degenerative disk disease, narcotics dependence. 4. Anxiety disorder. 5. Hypertension. PLAN: Discussed with Dr. Eldridge. She is going to need repeat colonoscopy after a few months and a lso he is recommending for MR gastrography that can be done in [place], so awaiting Dr. Eldridge p ending discharge. She can resume her medication as prior to admission that includes Xanax, losartan, Ambien and omeprazole. Silvina Wright MD cc: [id number] TT: 10/13/2016 12:14:43 rosario
== END 2016-10-13 13:47 | disposition home or self-care (01) | DRG 389 ==
LOC: ED 11:19 → ERH 15:30 → 5RSO 18:28
PROVIDERS: ADMIT Internal Medicine; ATTEND Internal Medicine
PROC: 0DJD8ZZ Inspection of Lower Intestinal Tract, Via Natural or Artificial Opening Endoscopic (ICD-10-PCS; principal; 2016-10-12 16:00)
DX: K56.1 Intussusception (principal); F11.20 Opioid dependence, uncomplicated; I10 Essential (primary) hypertension; K59.09 Other constipation; M19.90 Unspecified osteoarthritis, unspecified site; F41.9 Anxiety disorder, unspecified; F31.9 Bipolar disorder, unspecified; F60.3 Borderline personality disorder; K57.90 Diverticulosis of intestine, part unspecified, without perforation or abscess without bleeding; K58.9 Irritable bowel syndrome, unspecified; Z85.038 Personal history of other malignant neoplasm of large intestine; Z86.010 Personal history of colon polyps; Z87.11 Personal history of peptic ulcer disease; Z88.8 Allergy status to other drugs, medicaments and biological substances; Z87.892 Personal history of anaphylaxis; Z91.013 Allergy to seafood; R40.2412 Glasgow coma scale score 13-15, at arrival to emergency department; Z86.19 Personal history of other infectious and parasitic diseases; Z80.9 Family history of malignant neoplasm, unspecified; K29.70 Gastritis, unspecified, without bleeding; K57.30 Diverticulosis of large intestine without perforation or abscess without bleeding; K64.9 Unspecified hemorrhoids

== ENCOUNTER 2017-06-08 15:58 | Emergency (ER) | payer MEDICARE, MEDICAID ==
[2017-06-08 16:05] VITALS: TEMP 98; BMI 24.7
[2017-06-08] MEDS ORDERED: Sodium Chloride 0.9% 1,000 ML IV STA (16:59)
[2017-06-08 17:24] LABS: BASO # 0.04 [, K/mm3] (0.0-2.0); BASO % 0.8 % (0.0-3.0); EOS # 0.1 (0.0-0.7); EOS % 1.5 % (1.5-5.0); GRAN # 2.39 (1.4-6.5); GRAN % 45.4 % (50.0-68.0); HEMOGLOBIN 12.8 g/dL (12.0-16.0); LYMPH # 2.4 (1.2-3.4); LYMPH % 45.6 % (22.0-35.0); MEAN CELL VOLUME 88.9 fl (80.0-105.0); MEAN CORPUSCULAR HEMOGLOBIN 29.6 pg (25.0-35.0); MEAN CORPUSCULAR HGB CONC 33.2 g/dl (31.0-37.0); MEAN PLATELET VOLUME 10.2 fl (7.0-11.0); MONO # 0.4 (0.1-0.6); MONO % 6.7 % (1.0-6.0); RBC 4.33 [, 10^6/uL] (3.5-6.1); RED CELL DISTRIBUTION WIDTH 12.6 % (11.5-14.5); WHITE BLOOD COUNT 5.3 [, 10^3/ul] (4.5-11.0)
[2017-06-08 17:28] LABS: BLOOD UREA NITROGEN 15 mg/dL (7-21); CALCIUM 10.1 mg/dL (8.4-10.5); GFR AFRICAN-AMERICAN > 60; GFR NON-AFRICAN AMERICAN 57
[2017-06-08 17:29] LABS: ALB/GLOB RATIO 1.3 (1.1-1.8); ALBUMIN 4.2 g/dL (3.0-4.8); ALT/SGPT 32 U/L (7-56); AST/SGOT 22 U/L (14-36); LIPASE 86 U/L (23-300)
[2017-06-08 17:40] LABS: TROPONIN I < 0.01 ng/mL
--- NOTE | 2017-06-08 17:49 | ED PDOC ---
Arrival/HPI - General Chief Complaint: Abdominal Pain Time Seen by Provider: 06/08/17 16:14 Historian: Patient - History of Present Illness Narrative History of Present Illness (Text): 06/08/17 17:46 A 56 year old female, whose past medical history includes intussusception, H. pylori and diverticulitis presents to the emergency department complaining of several day duration abdominal pain and discomfort with associated constipation sensation. The patient denies fevers, chills, headache, dizziness, chest pain, shortness of breath, dyspnea on exertion, cough, nausea, vomiting, diarrhea, back pain, neck pain, dysuria, urinary/bowel changes, or any other complaint. PMD: Dr. Meza Time/Duration: Other (Several Days) Symptom Onset: Sudden Symptom Course: Unchanged Activities at Onset: Rest, Light Context: Home Past Medical History - Provider Review Nursing Documentation Reviewed: Yes - Infectious Disease Hx of Infectious Diseases: None - Tetanus Immunization Tetanus Immunization: Unknown - Cardiac Hx Hypertension: Yes Hx Pacemaker: No - Neurological Hx Paralysis: No - Hematological/Oncological Hx Blood Transfusions: No - Musculoskeletal/Rheumatological Hx Musculoskeletal Disorders: Yes Other/Comment: DJD - Gastrointestinal Hx Diverticulitis: Yes Other/Comment: Hpylori. Intussusception - Genitourinary/Gynecological Hx Genitourinary Disorders: No - Psychiatric Hx Anxiety: Yes Hx Emotional Abuse: No Hx Physical Abuse: No Hx Substance Use: No - Surgical History Hx Section: Yes Other/Comment: breast augmentation - Anesthesia Hx Anesthesia: Yes Hx Anesthesia Reactions: No Hx Malignant Hyperthermia: No - Suicidal Assessment Feels Threatened In Home Enviroment: No Family/Social History - Physician Review Nursing Documentation Reviewed: Yes Family/Social History: No Known Family HX Smoking Status: Never Smoked Hx Alcohol Use: No Hx Substance Use: No Hx Substance Use Treatment: No Allergies/Home Meds Allergies/Adverse Reactions: Allergies iodine Allergy (Verified 10/10/16 11:35) ANAPHYLAXIS CRABS Allergy (Severe, Uncoded 10/10/16 11:35) ANAPHYLAXIS Home Medications: Home Meds Medication Instructions Recorded Confirmed Alprazolam [Xanax] 2 mg PO TID 09/07/14 05/22/17 Losartan [Cozaar] 100 mg PO DAILY 10/10/16 05/22/17 Zolpidem [Ambien] 5 mg PO HS PRN 10/10/16 05/22/17 Ergocalciferol (Vitamin D2) 2,000 units PO DAILY 05/22/17 [Vitamin D2] Folic Acid 1 mg PO DAILY 05/22/17 Gabapentin [Neurontin] 600 mg PO DAILY PRN 05/22/17 Ibuprofen [Advil] 600 mg PO DAILY 05/22/17 Linaclotide [Linzess] 290 mg PO DAILY 05/22/17 Review of Systems - Physician Review All systems were reviewed & negative as marked: Yes - Review of Systems Constitutional: absent: Fevers, Night Sweats Respiratory: absent: SOB, Cough Cardiovascular: absent: Chest Pain, DUGGAN Gastrointestinal: Abdominal Pain, Constipation. absent: Stool Changes, Diarrhea , Nausea, Vomiting Genitourinary Female: absent: Dysuria, Urine Output Changes Musculoskeletal: absent: Back Pain, Neck Pain Neurological: absent: Headache, Dizziness Physical Exam Vital Signs Reviewed: Yes Vital Signs Temp Pulse Resp BP Pulse Ox 06/08/17 20:21 73 72 H 132/91 H 98 06/08/17 18:00 84 18 132/86 98 06/08/17 16:05 98.0 F 92 H 18 134/99 H 98 Temperature: Afebrile Blood Pressure: Hypertensive Pulse: Tachycardic Respiratory Rate: Normal Appearance: Positive for: Well-Appearing, Non-Toxic, Comfortable Pain Distress: None Mental Status: Positive for: Alert and Oriented X 3 - Systems Exam Head: Present: Atraumatic, Normocephalic Pupils: Present: PERRL Extroacular Muscles: Present: EOMI Conjunctiva: Present: Normal Mouth: Present: Moist Mucous Membranes Neck: Present: Normal Range of Motion Respiratory/Chest: Present: Clear to Auscultation, Good Air Exchange. No: Respiratory Distress, Accessory Muscle Use Cardiovascular: Present: Regular Rate and Rhythm, Normal S1, S2. No: Murmurs Abdomen: Present: Tenderness (Mild generalized tenderness. ). No: Rebound ( Abdomen soft. No reboud.) Back: Present: Normal Inspection Upper Extremity: Present: Normal Inspection. No: Cyanosis, Edema Lower Extremity: Present: Normal Inspection. No: Edema Neurological: Present: GCS=15, CN II-XII Intact, Speech Normal Skin: Present: Warm, Dry, Normal Color. No: Rashes Psychiatric: Present: Alert, Oriented x 3, Normal Insight, Normal Concentration Medical Decision Making ED Course and Treatment: 06/08/17 17:49 Impression: A 56 year old female presents to the emergency department complaining of several day duration abdominal pain and associated constipation sensation. Plan: -- Abdomen/Pelvis CT -- EKG -- Labs -- Urinalysis -- Urine Culture -- Pepcid and IV Fluids -- Reassess and disposition Prior Visits: Notes and results from previous visits were reviewed. Patient was last seen in the emergency department on 10/10/2016. The patient was seen in the emergency department complaining of lower abdominal pain and constipation. The patient was hospitalized. Progress Notes: 06/08/17 18:18 you were treated in the ED today for several day duration abdominal pain otherwise without any nausea/vomiting/headache/dizziness/difficulty breathing/ chest pain/numbness/tingling/loss of limb function/pain with urination. You were otherwise breathing easily, good strength/sensation, walking easily, clear lungs, mild abdomen discomfort, no fever temp 98, stable heart rate 92, stable breathing rate 18, excellent oxygen level 98% room air, elevated blood pressure 134/99 which we recommend repeat in 2-3 days primary care office to determine further treatment, you have blood tests no infection count 5, stable blood level hemoglobin 12/platelets 225, stable chemistry, heart blood test normal, urine test no sign of infection, radiology ct chest no acute findings, ct abdomen/pelvis no obstruction, normal appendix with mild enteritis, ECG normal sinus rhythm, intravenous fluids done in the ED with improvement, counselled to drink lots of fluids and thus discharged home. 1. Recommend follow-up primary care 2-3 days to review symptoms, referral to gastroenterology clinic to review symptoms and for mild intestinal thickening ensure no complications/ cancer development. 3. If any worsening pain, fever, chills, nausea, vomiting, difficulty breathing, numbness, loss of limb function, pain with urination or any medical condition then return to the ED. 06/08/17 18:19 06/08/17 18:20 06/08/17 23:03 06/08/17 23:05 - Lab Interpretations Lab Results: 06/08/17 17:05 06/08/17 17:05 Lab Results 06/08/17 19:08: Urine Color Yellow, Urine Appearance Clear, Urine pH 7.0, Ur Specific [place] <= 1.005, Urine Protein Negative, Urine Glucose (UA) Negative, Urine Ketones Negative, Urine Blood Negative, Urine Nitrate Negative, Urine Bilirubin Negative, Urine Urobilinogen 0.2, Ur Leukocyte Esterase Negative 06/08/17 17:05: Sodium 139, Potassium 4.3, Chloride 102, Carbon Dioxide 27, Anion Gap 15, BUN 15, Creatinine 1.0, Est GFR ( Amer) > 60, Est GFR (Non- Af Amer) 57, Random Glucose 98, Calcium 10.1, Total Bilirubin 0.7, AST 22, ALT 32, Alkaline Phosphatase 94, Troponin I < 0.01, Total Protein 7.4, Albumin 4.2, Globulin 3.2, Albumin/Globulin Ratio 1.3, Lipase 86 06/08/17 17:05: PT 9.7, INR 0.85 L, APTT 30.8 06/08/17 17:05: WBC 5.3, RBC 4.33, Hgb 12.8, Hct 38.5, MCV 88.9, MCH 29.6, MCHC 33.2, RDW 12.6, Plt Count 225, MPV 10.2, Gran % 45.4 L, Lymph % (Auto) 45.6 H, Runnels % (Auto) 6.7 H, Eos % (Auto) 1.5, Baso % (Auto) 0.8, Gran # 2.39, Lymph # 2.4, Runnels # 0.4, Eos # 0.1, Baso # 0.04 I have reviewed the lab results: Yes - RAD Interpretation Radiology Orders: 06/08/17 20:53 CHEST, ABDOMEN, PELVIS PO Only [CT] Stat Russian Language Instructor: Radiologist - EKG Interpretation Interpreted by ED Physician: Yes Type: 12 lead EKG - Medication Orders Current Medication Orders: Discontinued Medications Famotidine (Pepcid) 20 mg IVP STAT STA Stop: 06/08/17 17:00 Last Admin: 06/08/17 17:26 Dose: 20 mg IVP Administration Document 06/08/17 17:26 EQ (Rec: 06/08/17 17:26 EQ [facility] [id number]) Charges for Administration # of IVP Administrations 1 Sodium Chloride (Sodium Chloride 0.9%) 1,000 mls @ 1,000 mls/hr IV .Q1H STA Stop: 06/08/17 17:58 Last Admin: 06/08/17 17:26 Dose: 1,000 mls/hr eMAR Start Stop Document 06/08/17 17:26 EQ (Rec: 06/08/17 17:26 EQ [facility] [id number]) Intravenous Solution Start Date 06/08/17 Start Time 17:26 - Scribe Statement The provider has reviewed the documentation as recorded by the Scribe Kelly Lehman Provider Scribe Attestation: All medical record entries made by the Scribe were at my direction and personally dictated by me. I have reviewed the chart and agree that the record accurately reflects my personal performance of the history, physical exam, medical decision making, and the department course for this patient. I have also personally directed, reviewed, and agree with the discharge instructions and disposition. Disposition/Present on Arrival - Present on Arrival Any Indicators Present on Arrival: No History of DVT/PE: No History of Uncontrolled Diabetes: No Urinary Catheter: No History of Decub. Ulcer: No History Surgical Site Infection Following: None - Disposition Have Diagnosis and Disposition been Completed?: Yes Diagnosis: Gastroenteritis Disposition: HOME/ ROUTINE Disposition Time: 23:08 Patient Plan: Discharge Condition: IMPROVED Additional Instructions: you were treated in the ED today for several day duration abdominal pain otherwise without any nausea/vomiting/headache/dizziness/difficulty breathing/ chest pain/numbness/tingling/loss of limb function/pain with urination. You were otherwise breathing easily, good strength/sensation, walking easily, clear lungs, mild abdomen discomfort, no fever temp 98, stable heart rate 92, stable breathing rate 18, excellent oxygen level 98% room air, elevated blood pressure 134/99 which we recommend repeat in 2-3 days primary care office to determine further treatment, you have blood tests no infection count 5, stable blood level hemoglobin 12/platelets 225, stable chemistry, heart blood test normal, urine test no sign of infection, radiology ct chest no acute findings, ct abdomen/pelvis no obstruction, normal appendix with mild enteritis, ECG normal sinus rhythm, intravenous fluids done in the ED with improvement, counselled to drink lots of fluids and thus discharged home. 1. Recommend follow-up primary care 2-3 days to review symptoms, referral to gastroenterology clinic to review symptoms and for mild intestinal thickening ensure no complications/ cancer development. 3. If any worsening pain, fever, chills, nausea, vomiting, difficulty breathing, numbness, loss of limb function, pain with urination or any medical condition then return to the ED. Referrals: Silvina Wright MD [Primary Care Provider] - Follow up with primary Forms: [employer] ([place])
[2017-06-08 18:04] LABS: INR 0.85 (0.93-1.08); PARTIAL THROMBOPLASTIN TIME 30.8 Seconds (25.1-36.5); PROTHROMBIN TIME 9.7 SECONDS (9.4-12.5)
[2017-06-08] MEDS ORDERED: Barium Sulfate Susp 2.1% w/v, 2.0% w/w 450 mL Bottle PO ONE (18:35)
[2017-06-08 19:35] LABS: URINE BILIRUBIN NEGATIVE (NEGATIVE); URINE BLOOD NEGATIVE (NEGATIVE); URINE GLUCOSE (UA) NEGATIVE (NEGATIVE); URINE LEUKOCYTE ESTERASE NEGATIVE Leu/uL (NEGATIVE); URINE NITRATE NEGATIVE (NEGATIVE); URINE PROTEIN NEGATIVE mg/dL (<30 mg/dL); URINE UROBILINOGEN 0.2 E.U./dL (<1 E.U./dL)
[2017-06-08 19:37] LABS: URINE APPEARANCE CLEAR (CLEAR); URINE COLOR YELLOW (YELLOW)
[2017-06-08 20:22] VITALS: PULSE 73
--- NOTE | 2017-06-08 22:28 | CT ---
EXAM: CT Chest Without Intravenous Contrast CLINICAL HISTORY: 56 years old, female; Pain; Abdominal pain; Chest pain; Prior surgery; Patient HX: 56yof, intessuption HX, w abd pain. ; Additional info: 56yof, intessuption HX, w abd pain. TECHNIQUE: Axial computed tomography images of the chest without intravenous contrast. All CT scans at this facility use one or more dose reduction techniques, viz.: automated exposure control; ma/kV adjustment per patient size (including targeted exams where dose is matched to indication; i.e. head); or iterative reconstruction technique. Coronal and sagittal reformatted images were created and reviewed. COMPARISON: No relevant prior studies available. FINDINGS: Limitations: Lack of intravenous contrast. Motion artifact - mild. Lungs: Mild linear atelectasis/scarring. No consolidation. Pleural space: No pneumothorax. No significant effusion. Heart: No cardiomegaly. No significant pericardial effusion. Mediastinum: Minimal contrast within esophagus may represent reflux. Bones/joints: No acute fracture. Soft tissues: Breast implants. Vasculature: Unremarkable. No aneurysm. Lymph nodes: No pathologically enlarged lymph nodes. IMPRESSION: 1.No acute findings. 2.Non-acute findings are described above. EXAM: CT Abdomen and Pelvis Without Intravenous Contrast CLINICAL HISTORY: 56 years old, female; Pain; Abdominal pain; Chest pain; Prior surgery; Patient HX: 56yof, intessuption HX, w abd pain. ; Additional info: 56yof, intessuption HX, w abd pain. TECHNIQUE: Axial computed tomography images of the abdomen and pelvis without intravenous contrast. All CT scans at this facility use one or more dose reduction techniques, viz.: automated exposure control; ma/kV adjustment per patient size (including targeted exams where dose is matched to indication; i.e. head); or iterative reconstruction technique. Coronal and sagittal reformatted images were created and reviewed. COMPARISON: CT - ABD PELVIS PO CONTRAST ONLY 2016-10-10 14:01 FINDINGS: Limitations: Lack of intravenous contrast. Motion artifact - mild. ABDOMEN: Liver: Unremarkable. Gallbladder and bile ducts: No calcified stones. No ductal dilation. Pancreas: Unremarkable. No ductal dilation. Spleen: No splenomegaly. Adrenals: No mass. Kidneys and ureters: No renal calculi. No hydronephrosis. Stomach and bowel: Apparent mild mural/fold thickening vs underdistention of few jejunal loops. No associated inflammatory stranding. Scattered diverticula within colon. No associated inflammatory stranding. No obstruction. Appendix: Normal caliber. No inflammation. PELVIS: Bladder: Unremarkable. No stones. Reproductive: Unremarkable as visualized. ABDOMEN and PELVIS: Intraperitoneal space: No significant fluid collection. No free air. Bones/joints: Degenerative changes of spine. No acute fracture. Soft tissues: Unremarkable. Vasculature: Unremarkable. No aneurysm. Lymph nodes: No pathologically enlarged lymph nodes. IMPRESSION: 1. Possible mild enteritis. Clinical correlation is needed. 2. Diverticulosis without definite CT evidence of diverticulitis. 3. Incidental/non-acute findings are described above.
[2017-06-08 23:40] VITALS: BP 139/74; RESP 18; O2SAT 99
--- NOTE | 2017-06-09 10:08 | CARD ---
APPROVED REPORT EKG Measurement Heart [id number] <Conclusion> Normal sinus rhythm Normal ECG No change
== END 2017-06-08 23:41 | disposition home or self-care (01) ==
LOC: ED 15:58
DX: K52.9 Noninfective gastroenteritis and colitis, unspecified (principal); I10 Essential (primary) hypertension
CPT/HCPCS: 71250; 74176; 80053; 81003; 83690; 84484; 85025; 85610; 85730; 87086; 93005; 96374; 99284; J7040

== ENCOUNTER 2017-07-09 09:31 | Day surgery (SDC) | payer MEDICARE, MEDICAID ==
[2017-07-01 15:45] VITALS: BMI 24.3
[2017-07-09] MEDS ORDERED: Lactated Ringer's 1,000 ML IV SCH (11:00)
[2017-07-09] MEDS ORDERED: Propofol 10 mg/ml Inj (20 ML) ONE (11:51)
[2017-07-09 14:39] VITALS: BP 105/69; PULSE 72; RESP 16; TEMP 97.8; O2SAT 95
== END 2017-07-09 14:26 | disposition home or self-care (01) ==
LOC: ENDO 09:31
PROVIDERS: ATTEND Internal Medicine Gastroenterology
DX: K29.50 Unspecified chronic gastritis without bleeding (principal); K21.0 Gastro-esophageal reflux disease with esophagitis; I10 Essential (primary) hypertension
CPT/HCPCS: 43239; 88305; 88312; 88342; J2001; J2704; J3010; J7040; J7120

== ENCOUNTER 2018-04-22 10:39 | Inpatient (IN) | payer MEDICARE, MEDICAID ==
--- NOTE | 2018-04-22 11:54 | ED PDOC ---
Arrival/HPI <Em Schultz - Last Filed: 04/22/18 13:23> - General Historian: Patient - History of Present Illness Narrative History of Present Illness (Text): 04/22/18 11:43 57 y o female PMhx HTN, PTSD, insomnia, intussusception, H. pylori, diverticulitis, chronic back pain, presents to ED c/o worsening headache and neck pain s/p syncopal episode/fall yesterday. Pt states that she was making coffee yesterday am at home, and then woke up 45 mins later on the floor covered in coffee grounds. States she was unable to recall her name or where she was for about 30 mins after regaining consciousness. States she thinks she may have blacked out for about 45 mins. States that this is the first time this has happened. States she called her ex- who told her to go to the ER because she might have had a stroke, but pt states she did not go to the ER because she thought it would improve and instead went to her shrink. Woke up this am with LIGHT and neck pain, along with associated R periorbital ecchymosis, and thus decided to come to the ED. Rates headache as 7/10, localizes it to posterior base. Did not take any medications at home for symptoms. Pt states that she has hx of cervical, thoracic and lumbar chronic pain, but states that her neck pain starte d worsening after this episode. Notes intermittent blurry vision on R eye and nausea. Admits to dizziness. Able to ambulate without concerns. Denies fever, chills, chest pain, sob, v/d, urinary complaints, or other symptoms. Notes chronic hx of constipation, last BM 1 week prior, but states that this is unchanged from baseline. PMHx: HTN, PTSD, insomnia, intussusception, H. pylori, diverticulitis, chronic back pain PSurgHx: B/l breast augmentation, C/s, tonsillectomy Allergies: crab meat, IV contrast Home meds: Cozaar 100 mg daily, Linzess 90 mg daily (pt takes pill every other day), Xanax 2 mg tid prn for anxiety Fam hx: Mom w/ polyarteritis nodosa; dad from [place] at age 72; sister with schizophrenia and colon ca with mets Soc hx: former social smoker quit 30 y ago; denies EtOH or illicit drug use PMD: Dr. Galindo ([place]) Primary GI: Dr. Eldridge Time/Duration: 24 hours Symptom Onset: Sudden Symptom Course: Worsening Quality: Throbbing Severity Level: 7 Activities at Onset: Other (Making coffee in kitchen) Context: Walking, Exertion, Home <Fili Wolfe - Last Filed: 04/22/18 18:57> - General Chief Complaint: Syncope Past Medical History - Provider Review Nursing Documentation Reviewed: Yes - Travel History Have you recently traveled outside [place] w/in the past 3 mons?: No - Infectious Disease Hx of Infectious Diseases: None - Tetanus Immunization Tetanus Immunization: Unknown - Reproductive Menopause: Yes - Cardiac Hx Cardiac Disorders: Yes Hx Hypertension: Yes - Pulmonary Hx Respiratory Disorders: No - Neurological Hx Neurological Disorder: No - HEENT Hx HEENT Disorder: No - Renal Hx Renal Disorder: No - Endocrine/Metabolic Hx Endocrine Disorders: No - Hematological/Oncological Hx Blood Disorders: No - Integumentary Hx Dermatological Disorder: No - Musculoskeletal/Rheumatological Hx Musculoskeletal Disorders: Yes - Gastrointestinal Hx Gastrointestinal Disorders: Yes Hx Constipation: Yes Hx Diverticulitis: Yes Other/Comment: Hpylori. Intussusception - Genitourinary/Gynecological Hx Genitourinary Disorders: No - Psychiatric Hx Psychophysiologic Disorder: Yes Hx Anxiety: Yes Hx Substance Use: No Other/Comment: PTSD - Surgical History Hx Section: Yes Other/Comment: breast augmentation - Anesthesia Hx Anesthesia Reactions: No Hx Malignant Hyperthermia: No - Suicidal Assessment Feels Threatened In Home Enviroment: No <Fili Wolfe - Last Filed: 04/22/18 18:57> Family/Social History - Physician Review Nursing Documentation Reviewed: Yes Family/Social History: [place], Other Narrative Family History (Free Text): 04/22/18 18:56 Polyarteritis nodosa in mom Smoking Status: Never Smoked Hx Alcohol Use: No Hx Substance Use: No Hx Substance Use Treatment: No <Fili Wolfe - Last Filed: 04/22/18 18:57> Allergies/Home Meds <Em Schultz - Last Filed: 04/22/18 13:23> <Fili Wolfe - Last Filed: 04/22/18 18:57> Allergies/Adverse Reactions: Allergies iodine Allergy (Verified 04/22/18 16:09) ANAPHYLAXIS CRABS Allergy (Severe, Uncoded 04/22/18 16:09) ANAPHYLAXIS Home Medications: Home Meds Medication Instructions Recorded Confirmed Alprazolam [Xanax] 2 mg PO TID PRN 09/07/14 04/22/18 Losartan [Cozaar] 100 mg PO DAILY 10/10/16 04/22/18 Zolpidem [Ambien] 10 mg PO HS PRN 10/10/16 04/22/18 Linaclotide [Linzess] 290 mg PO DAILY 05/22/17 04/22/18 Review of Systems - Review of Systems Constitutional: absent: Fatigue, Weight Change, Fevers, Night Sweats Eyes: Vision Changes, Eye Pain. absent: Photophobia ENT: absent: Hearing Changes, Tinnitus Respiratory: absent: SOB, Cough, Wheezing Cardiovascular: Syncope. absent: Chest Pain, Palpitations, Edema, DUGGAN Gastrointestinal: Constipation, Nausea. absent: Abdominal Pain, Stool Changes, Diarrhea, Vomiting Genitourinary Female: absent: Urine Output Changes Musculoskeletal: Neck Pain. absent: Arthralgias Skin: absent: Rash, Laceration Neurological: Headache, Dizziness. absent: Focal Weakness, Gait Changes, Speech Changes, Facial Droop Endocrine: absent: Diaphoresis <Fili Wolfe - Last Filed: 04/22/18 18:57> Physical Exam Vital Signs Temp Pulse Resp BP Pulse Ox 04/22/18 11:10 97.7 F 92 H 16 142/81 100 <Em Schultz - Last Filed: 04/22/18 13:23> Vital Signs Reviewed: Yes Vital Signs Temp Pulse Resp BP Pulse Ox 04/22/18 11:10 97.7 F 92 H 16 142/81 100 Temperature: Afebrile Blood Pressure: Hypertensive Pulse: Regular Respiratory Rate: Normal Appearance: Positive for: Well-Appearing, Non-Toxic, Comfortable Pain Distress: Mild Mental Status: Positive for: Alert and Oriented X 3 - Systems Exam Head: Present: Atraumatic, Normocephalic, Ecchymosis (R periorbital ecchymosis). No: Abrasion, Laceration Pupils: Present: PERRL Extroacular Muscles: Present: EOMI (pain with ocular movement of R eye, no papilledema) Conjunctiva: Present: Normal Mouth: Present: Moist Mucous Membranes Nose (External): Present: Atraumatic Nose (Internal): Present: Normal Inspection, No Active Bleeding Neck: Present: Normal Range of Motion (Pain elicited with extension of cervical spine), Paraspinal Tenderness, Trachea Midline. No: Meningeal Signs, JVD, Lymphadenopathy Respiratory/Chest: Present: Clear to Auscultation, Good Air Exchange. No: Respiratory Distress, Accessory Muscle Use, Wheezes, Rales, Rhonchi Cardiovascular: Present: Regular Rate and Rhythm, Normal S1, S2. No: Murmurs, Rub, Gallop Abdomen: Present: Normal Bowel Sounds. No: Tenderness, Distention, Rebound, Guarding, Mass/Organomegaly Upper Extremity: Present: Normal Inspection, Normal ROM, NORMAL PULSES, Neurovascularly Intact, Capillary Refill < 2s, Norm 2-Pt Discrimination. No: Cyanosis, Edema, Temperature Abnormalties Lower Extremity: Present: Normal Inspection, NORMAL PULSES, Normal ROM, Neurovascularly Intact, Capillary Refill < 2 s. No: Edema, CALF TENDERNESS, Temperature Abnormalties Neurological: Present: GCS=15, CN II-XII Intact, Speech Normal, Motor Func Grossly Intact, Normal Sensory Function, Normal Cerebellar Funct, Norm Deep Tendon Reflexes, Gait Normal, Memory Normal, Normal 2Pt Descrimination Skin: Present: Warm, Dry, Normal Color. No: Rashes Psychiatric: Present: Alert, Oriented x 3, Normal Insight, Normal Concentration <Fili Wolfe - Last Filed: 04/22/18 18:57> Medical Decision Making ED Course and Treatment: 04/22/18 12:00 57 year old female presents to the Emergency department complaining of headache and neck pain s/p fall 24 hours ago. In agreement with resident note which contains more details about the patient. Patient seen and evaluated with resident. Came up with plan and treatment together. - Lab Interpretations Lab Results: Lab Results 04/22/18 11:55: Urine Opiates Screen Negative, Urine Methadone Screen Negative, Ur Barbiturates Screen Negative, Ur Phencyclidine Scrn Negative, Ur Amphetamines Screen Negative, U Benzodiazepines Scrn Positive H, U Oth Cocaine Metabols Negative, U Cannabinoids Screen Negative 04/22/18 11:55: Urine Color Yellow, Urine Appearance Clear, Urine pH 6.5, Ur Specific [place] 1.010, Urine Protein Negative, Urine Glucose (UA) Negative, Urine Ketones Negative, Urine Blood Negative, Urine Nitrate Negative, Urine Alber irubin Negative, Urine Urobilinogen 0.2, Ur Leukocyte Esterase Trace H, Urine RBC Negative, Urine WBC 5 - 10, Ur Epithelial Cells 6 - 8, Urine Bacteria Mod - RAD Interpretation Radiology Orders: 04/22/18 11:36 CHEST PORTABLE [RAD] Stat 04/22/18 11:37 HEAD W/O CONTRAST [CT] Stat 04/22/18 11:38 CERVICAL SPINE W/O CONTRAST [CT] Stat MAXILLOFACIAL W/O CONTRAST [CT] Stat <Em Schultz - Last Filed: 04/22/18 13:23> ED Course and Treatment: 04/22/18 11:59 57 y o female PMhx HTN, PTSD, insomnia, intussusception, H. pylori, diverticulitis, chronic back pain, presents with basilar LIGHT and worsening neck pain s/p syncopal episode/fall 24 hrs prior. Plan: -Labs -EKG, CXR -CT head/C-spine/maxillofacial Continue to monitor. 04/22/18 14:33 Informed pt of results of CT head and maxillofacial. CT head demonstrates asymmetrical focal abnormal density in L larson radiata and anterior limb of internal capsule could represent age-indeterminate infarction, demyelination, or chronic microangiopathic change; also hemorrhagic fluids in R maxillary sinus. CT maxillofacial demonstrates acute mildly depressed R orbital floor fracture and moderate periorbital soft tissue swelling. No evidence of inferior rectus muscle entrapment. Admit patient to tele for Syncope, CVA. Spoke about admission with Dr. Olsen (Hospiitalist Service), who requests ENT consult at this time for R orbital floor fracture. Call made out to Dr. Colin's service (ENT), awaiting callback. - RAD Interpretation Radiology Orders: 04/22/18 11:36 CHEST PORTABLE [RAD] Stat 04/22/18 11:37 HEAD W/O CONTRAST [CT] Stat 04/22/18 11:38 CERVICAL SPINE W/O CONTRAST [CT] Stat MAXILLOFACIAL W/O CONTRAST [CT] Stat - EKG Interpretation EKG Interpretation (Text): 04/22/18 12:01 NSR at 86 bpm, normal axis, no St-t changes noted. Interpreted by ED Physician: Yes <Fili Wolfe - Last Filed: 04/22/18 18:57> - PA / RECENTERER / Resident Statement MD/DO has reviewed & agrees with the documentation as recorded. MD/DO has examined the patient and agrees with the treatment plan. - Scribe Statement The provider has reviewed the documentation as recorded by the Roddyibe Paris Pinedo. All medical record entries made by the Eugenia were at my direction and personally dictated by me. I have reviewed the chart and agree that the record accurately reflects my personal performance of the history, physical exam, medical decision making, and the department course for this patient. I have also personally directed, reviewed, and agree with the discharge instructions and disposition. <Em Schultz - Last Filed: 04/22/18 13:23> Disposition/Present on Arrival <Em Schultz - Last Filed: 04/22/18 13:23> - Present on Arrival Any Indicators Present on Arrival: No History of DVT/PE: No History of Uncontrolled Diabetes: No Urinary Catheter: No History of Decub. Ulcer: No History Surgical Site Infection Following: None - Disposition Have Diagnosis and Disposition been Completed?: Yes Disposition Time: 14:32 Patient Plan: Admission <Fili Wolfe - Last Filed: 04/22/18 18:57> - Disposition Diagnosis: Syncope, CVA (cerebral vascular accident) Disposition: HOSPITALIZED Patient Problems: Current Active Problems Problem Status Onset Syncope Acute CVA (cerebral vascular accident) Acute Condition: GUARDED
[2018-04-22 12:08] LABS: URINE APPEARANCE CLEAR (CLEAR); URINE BILIRUBIN NEGATIVE (NEGATIVE); URINE COLOR YELLOW (YELLOW); URINE GLUCOSE (UA) NEGATIVE (NEGATIVE)
[2018-04-22 12:09] LABS: PH,URINE 6.5 (4.7-8.0); URINE BLOOD NEGATIVE (NEGATIVE); URINE LEUKOCYTE ESTERASE TRACE Leu/uL (NEGATIVE); URINE PROTEIN NEGATIVE mg/dL (<30 mg/dL); URINE UROBILINOGEN 0.2 E.U./dL (<1 E.U./dL)
[2018-04-22 12:15] LABS: URINE BACTERIA MOD (NEG); URINE RBC NEGATIVE /hpf (0-2)
[2018-04-22 12:34] LABS: BARBITURATES, UR NEGATIVE (NEGATIVE); BENZODIAZEPINES, UR POSITIVE (NEGATIVE); OPIATES, UR NEGATIVE (NEGATIVE); PHENCYCLIDINE, UR NEGATIVE (NEGATIVE)
--- NOTE | 2018-04-22 12:47 | CT ---
Date of service: 04/22/2018 PROCEDURE: CT HEAD WITHOUT CONTRAST. HISTORY: headache and neck pain, s/p syncopal episode, fall COMPARISON: None available. TECHNIQUE: Axial computed tomography images were obtained through the head/brain without intravenous contrast. Radiation dose: Total exam DLP = 928.38 mGy-cm. This CT exam was performed using one or more of the following dose reduction techniques: Automated exposure control, adjustment of the mA and/or kV according to patient size, and/or use of iterative reconstruction technique. FINDINGS: HEMORRHAGE: No intracranial hemorrhage. BRAIN: There an asymmetric focal low-attenuation area in the left larson radiata and anterior limb of internal capsule. There is no mass, mass effect or abnormal extra-axial fluid collection. The midline sagittal structures are normal. VENTRICLES: There is mild age-related global parenchymal volume loss and proportionate enlargement of the ventricles and cortical sulci. CALVARIUM: There is no calvarial fracture or extracranial soft tissue swelling. PARANASAL SINUSES: There is high attenuation fluid in the right maxillary sinus. The remaining included paranasal sinuses are clear. MASTOID AIR CELLS: Predominantly clear. OTHER FINDINGS: None. IMPRESSION: No acute intracranial abnormality. Asymmetric focal abnormal density in the left larson radiata and anterior limb of internal capsule could represent age indeterminate infarction, demyelination or focal chronic microangiopathic change. Correlation with MRI may be performed for definitive evaluation. Hemorrhagic fluid in the right maxillary sinus.
--- NOTE | 2018-04-22 12:57 | CT ---
Date of service: 04/22/2018 PROCEDURE: CT MAXILLOFACIAL BONES WITHOUT CONTRAST HISTORY: R periorbial ecchymosis, s/p fall COMPARISON: None available. TECHNIQUE: Contiguous axial CT images of the maxillofacial bones were obtained. Coronal and sagittal reformats were generated. Radiation dose: Total exam DLP = 711.74 mGy-cm. This CT exam was performed using one or more of the following dose reduction techniques: Automated exposure control, adjustment of the mA and/or kV according to patient size, and/or use of iterative reconstruction technique. FINDINGS: NASAL BONES: No acute fracture. ORBITS: There is an acute mildly depressed right orbital floor fracture. There is moderate right periorbital soft tissue swelling. No evidence of entrapment of the inferior rectus muscle. There is no orbital roof or lateral wall fracture. PARANASAL SINUSES/ MASTOIDS: There is hemorrhagic fluid in the right maxillary sinus. The remaining included paranasal sinuses are clear. MAXILLA: No acute maxillofacial fracture. MANDIBLE/ TEMPOROMANDIBULAR JOINTS: Unremarkable. SKULL BASE: Unremarkable. TEMPORAL BONES: Middle ears and mastoid grossly unremarkable. OTHER FINDINGS: None. IMPRESSION: Acute mildly depressed right orbital floor fracture and moderate periorbital soft tissue swelling. No evidence of inferior rectus muscle entrapment. Hemorrhagic fluid in the right maxillary sinus.
--- NOTE | 2018-04-22 13:04 | CT ---
Date of service: 04/22/2018 PROCEDURE: CT Cervical Spine without contrast HISTORY: neck pain s/p syncopal episode, fall COMPARISON: None available. TECHNIQUE: Axial computed tomography images were obtained of the cervical spine without the use of intravenous contrast. Coronal and sagittal reformatted images were created and reviewed. Radiation dose: Total exam DLP = 453.78 mGy-cm. This CT exam was performed using one or more of the following dose reduction techniques: Automated exposure control, adjustment of the mA and/or kV according to patient size, and/or use of iterative reconstruction technique. FINDINGS: VERTEBRAE: There is normal alignment of the cervical vertebral bodies. There straightening of the cervical spine with loss of normal cervical lordosis. There is no acute fracture or traumatic anterior listhesis. The craniocervical junction is normal. The atlantoaxial joint is normal. DISCS/SPINAL CANAL/NEURAL FORAMINA: S there is multilevel degenerative disc disease due to combination of disc osteophyte complexes, uncovertebral joint hypertrophy and multilevel facet arthropathy, worse at C6-7 with severe bilateral neural foraminal narrowing and mild spinal canal stenosis. PARASPINAL SOFT TISSUES: The paraspinous soft tissues are normal. OTHER FINDINGS: No apical pneumothorax. IMPRESSION: No acute fracture or traumatic anterior listhesis.
--- NOTE | 2018-04-22 13:12 | RAD ---
Date of service: 04/22/2018 HISTORY: syncopal episode, s/p fall COMPARISON: No prior. FINDINGS: LUNGS: The lungs are well inflated and clear. PLEURA: No pleural effusions or pneumothorax. CARDIOVASCULAR: The heart is normal in size. No aortic atherosclerotic calcification present. OSSEOUS STRUCTURES: Within normal limits for the patient's age. VISUALIZED UPPER ABDOMEN: Normal. OTHER FINDINGS: None. IMPRESSION: No acute findings.
[2018-04-22 13:35] LABS: MEAN CELL VOLUME 88.4 fl (80.0-105.0); MEAN CORPUSCULAR HEMOGLOBIN 29.6 pg (25.0-35.0); MEAN CORPUSCULAR HGB CONC 33.5 g/dl (31.0-37.0); RBC 4.73 10^6/uL (3.5-6.1); RED CELL DISTRIBUTION WIDTH 13.4 % (11.5-14.5); WHITE BLOOD COUNT 5.8 10^3/uL (4.5-11.0)
[2018-04-22 13:36] LABS: BASO # 0.03 K/mm3 (0.0-2.0); BASO % 0.5 % (0.0-3.0); EOS % 0.7 % (1.5-5.0); GRAN # 2.64 (1.4-6.5); GRAN % 45.7 % (50.0-68.0); LYMPH # 2.7 (1.2-3.4); LYMPH % 45.8 % (22.0-35.0); MEAN PLATELET VOLUME 10.7 fl (7.0-11.0); MONO # 0.4 (0.1-0.6); MONO % 7.3 % (1.0-6.0)
[2018-04-22 13:41] LABS: INR 0.97; PARTIAL THROMBOPLASTIN TIME 30.9 Seconds (25.1-36.5); PROTHROMBIN TIME 11.1 SECONDS (9.4-12.5)
[2018-04-22 13:50] LABS: ALB/GLOB RATIO 1.2 (1.1-1.8); ALBUMIN 4.7 g/dL (3.0-4.8); ALT/SGPT 29 U/L (7-56); AST/SGOT 24 U/L (14-36); BLOOD UREA NITROGEN 12 mg/dL (7-21); CALCIUM 9.9 mg/dL (8.4-10.5); GFR NON-AFRICAN AMERICAN > 60
[2018-04-22 14:44] LABS: TROPONIN I < 0.01 ng/mL
[2018-04-22] MEDS ORDERED: Dextrose 5%/0.9% NS 1,000 ML IV SCH (15:45)
[2018-04-22] MEDS ORDERED: POLYETHYLENE GLYCOL 3350 17 GM/Dose PACKET PO PRN (15:49)
--- NOTE | 2018-04-22 15:58 | CP.PCM.HP ---
History of Present Illness - History of Present Illness History of Present Illness: Internal medicine history and physical for Dr. Olsen cc: syncope/fall/facial injury Patient is a 57 yr old female with PMH HTN, PTSD, depression, bipolar, anxiety, ADHD, intussuception and pericardial cyst who presents to [facility] today after fall yesterday morning resulting in facial injury. Patient states that yesterday morning she took xanax and seroquel d/t anxiety/ insomnia. she then went to the kitchen to make coffee and fell. She awoke some time later on the floor after what she believes was approximately 15 minutes. she was at home alone and the fall was unwitnessed. She denies any history or family history of seizures. She indicates facial pain LIGHT and swelling since that time but denies any n/v, dizziness, confusion, difficulty concentrating, CP, palpitations, SOB, abdominal pain, bowel or bladder incontinence, dysuria and extremity pain or weakness. She admits to taking nurmerous psyciatric medications at home and is unsure of when she was prescribed the seroquel or how it came into her possession. She does not regularly take seroquel. PMH: HTN, PTSD, depression, bipolar, anxiety, ADHD, intussuception and pericardial cyst (congenital) PSH: C section All: iodine/shellfish Social: denies Family: sister with breast cancer, mother with Polyarteritis nodosa Present on Admission - Present on Admission Any Indicators Present on Admission: No Review of Systems - Review of Systems All systems: reviewed and no additional remarkable complaints except (as per HPI) Past Patient History - Infectious Disease Hx of Infectious Diseases: None - Tetanus Immunizations Tetanus Immunization: Unknown - Past Social History Smoking Status: Never Smoked - CARDIAC Hx Cardiac Disorders: Yes Hx Hypertension: Yes - PULMONARY Hx Respiratory Disorders: No - NEUROLOGICAL Hx Neurological Disorder: No - HEENT Hx HEENT Problems: No - RENAL Hx Chronic Kidney Disease: No - ENDOCRINE/METABOLIC Hx Endocrine Disorders: No - HEMATOLOGICAL/ONCOLOGICAL Hx Blood Disorders: No - INTEGUMENTARY Hx Dermatological Problems: No - MUSCULOSKELETAL/RHEUMATOLOGICAL Hx Musculoskeletal Disorders: Yes - GASTROINTESTINAL Hx Gastrointestinal Disorders: Yes Hx Constipation: Yes Hx Diverticulitis: Yes Other/Comment: Hpylori. Intussusception - GENITOURINARY/GYNECOLOGICAL Hx Genitourinary Disorders: No - PSYCHIATRIC Hx Psychophysiologic Disorder: Yes Hx Anxiety: Yes Hx Post Traumatic Stress Disorder: Yes Hx Substance Use: No - SURGICAL HISTORY Hx Section: Yes Other/Comment: breast augmentation - ANESTHESIA Hx Anesthesia Reactions: No Hx Malignant Hyperthermia: No Meds Allergies/Adverse Reactions: Allergies Allergy/AdvReac Type Severity Reaction Status Date / Time iodine Allergy ANAPHYLAXIS Verified 04/22/18 16:09 CRABS Allergy Severe ANAPHYLAXIS Uncoded 04/22/18 16:09 Physical Exam - Constitutional Appears: Well, No Acute Distress - Head Exam Head Exam: NORMOCEPHALIC Additional comments: right aided facial edema, ecchymosis over right eye, edema and tenderness over the right side of the face, evidence of ruptured capillary in right eye - Eye Exam Eye Exam: EOMI, Periorbital swelling, Periorbital tenderness, PERRL Pupil Exam: NORMAL ACCOMODATION, PERRL. absent: Fixed, Irregular, Miosis, Mydriatic Additional comments: perorbital ecchymosis, evidence of rupture capillaries in right eye - ENT Exam ENT Exam: Mucous Membranes Moist - Respiratory Exam Respiratory Exam: Clear to Auscultation Bilateral, NORMAL BREATHING PATTERN - Cardiovascular Exam Cardiovascular Exam: REGULAR RHYTHM - GI/Abdominal Exam GI & Abdominal Exam: Soft. absent: Distended, Guarding, Tenderness - Extremities Exam Extremities exam: Positive for: normal capillary refill, pedal pulses present. Negative for: calf tenderness, pedal edema - Neurological Exam Neurological exam: Alert, Oriented x3 - Psychiatric Exam Psychiatric exam: Anxious, Depressed, Manic Additional comments: patient often oscillates between pressure speech and flight of ideas to tearfulness and expressions of depression - Skin Skin Exam: Dry, Intact, Warm Results - Vital Signs Recent Vital Signs: Last Vital Signs Temp 97.7 F 04/22/18 11:10 Pulse 78 04/22/18 13:30 Resp 16 04/22/18 13:30 BP 161/72 H 04/22/18 13:30 Pulse Ox 98 04/22/18 13:30 - Labs Result Diagrams: 04/22/18 13:20 04/22/18 13:20 Labs: Laboratory Results - last 24 hr 04/22/18 04/22/18 04/22/18 11:55 11:55 13:20 WBC 5.8 RBC 4.73 Hgb 14.0 Hct 41.8 MCV 88.4 MCH 29.6 MCHC 33.5 RDW 13.4 Plt Count 308 MPV 10.7 Gran % 45.7 L Lymph % (Auto) 45.8 H [place] % (Auto) 7.3 H Eos % (Auto) 0.7 L Baso % (Auto) 0.5 Gran # 2.64 Lymph # (Auto) 2.7 [place] # (Auto) 0.4 Eos # (Auto) 0.0 Baso # (Auto) 0.03 PT INR APTT Sodium Potassium Chloride Carbon Dioxide Anion Gap BUN Creatinine Est GFR ( Amer) Est GFR (Non-Af Amer) Random Glucose Calcium Magnesium Total Bilirubin AST ALT Alkaline Phosphatase Troponin I Total Protein Albumin Globulin Albumin/Globulin Ratio Urine Color Yellow Urine Appearance Clear Urine pH 6.5 Ur Specific [place] 1.010 Urine Protein Negative Urine Glucose (UA) Negative Urine Ketones Negative Urine Blood Negative Urine Nitrate Negative Urine Bilirubin Negative Urine Urobilinogen 0.2 Ur Leukocyte Esterase Trace H Urine RBC Negative Urine WBC 5 - 10 Ur Epithelial Cells 6 - 8 Urine Bacteria Mod Urine Opiates Screen Negative Urine Methadone Screen Negative Ur Barbiturates Screen Negative Ur Phencyclidine Scrn Negative Ur Amphetamines Screen Negative U Benzodiazepines Scrn Positive H U Oth Cocaine Metabols Negative U Cannabinoids Screen Negative 04/22/18 04/22/18 13:20 13:20 WBC RBC Hgb Hct MCV MCH MCHC RDW Plt Count MPV Gran % Lymph % (Auto) [place] % (Auto) Eos % (Auto) Baso % (Auto) Gran # Lymph # (Auto) [place] # (Auto) Eos # (Auto) Baso # (Auto) PT 11.1 INR 0.97 APTT 30.9 Sodium 140 Potassium 3.8 Chloride 103 Carbon Dioxide 27 Anion Gap 14 BUN 12 Creatinine 0.8 Est GFR ( Amer) > 60 Est GFR (Non-Af Amer) > 60 Random Glucose 103 Calcium 9.9 Magnesium 2.2 Total Bilirubin 1.2 AST 24 ALT 29 Alkaline Phosphatase 105 Troponin I < 0.01 Total Protein 8.7 H Albumin 4.7 Globulin 4.0 Albumin/Globulin Ratio 1.2 Urine Color Urine Appearance Urine pH Ur Specific [place] Urine Protein Urine Glucose (UA) Urine Ketones Urine Blood Urine Nitrate Urine Bilirubin Urine Urobilinogen Ur Leukocyte Esterase Urine RBC Urine WBC Ur Epithelial Cells Urine Bacteria Urine Opiates Screen Urine Methadone Screen Ur Barbiturates Screen Ur Phencyclidine Scrn Ur Amphetamines Screen U Benzodiazepines Scrn U Oth Cocaine Metabols U Cannabinoids Screen Assessment & Plan - Assessment and Plan (Free Text) Assessment: 57 yr old female with PMH HTN, depression, Bipolar disorder, PTSD, ADHD multiple psychiatric medications s/p fall yesterday morning after taking seroquel and xanax Plan: Sycopal Episode 2/2 medication vs cardia vs neurogenic - EKG - ECHO - cardiology consulted recs appreciated - EEG - CPK - Neurology consulted recs appreciated - repeat UA - Head CT negative for acute intracranial pathology Right sided orbital floor fracture - ENT consulted by ED, recs appreciated - Opthomology consulted for changes in vision, recs appreciated - tylenol as needed for pain - Maxillary CT showing orbital floor fracture and maxillary sinus hemorrhage Bipolar, PTSD, depressions, ADHD multiple psychiatric medications - Psych consulted, recs appreciated - home meds restarted called to confirm with pharmacy PPX: Pantoprazole, SCD Patient seen examined and discussed with Dr. Raúl Paulson, PGY 1 - Date & Time Date: 04/22/18 Time: 14:45 Decision To Admit - Pt Status Changed To: Hospital Disposition Of: Inpatient Admission - Admit Certification Admit to Inpatient:: After my assessment, the patient will require hospitalization for at least two midnights. This is because of the severity of symptoms shown, intensity of services needed, and/or the medical risk in this patient being treated as an outpatient. - . Bed Request Type: Telemetry Admitting Physician: Jose Olsen
[2018-04-22] MEDS: Sodium Chloride 0.9% 1,000 ML IV SCH (16:55)
--- NOTE | 2018-04-22 18:44 | CARD ---
APPROVED REPORT Date of service: 04/22/2018 EKG Measurement Heart [id number] <Conclusion> Normal sinus rhythm Normal ECG
[2018-04-22 19:30] VITALS: BMI 25.0
[2018-04-22] MEDS ORDERED: Pneumococcal 23-Valent Vaccine IM ONE (19:30)
[2018-04-22] MEDS ORDERED: Influenza Vaccine 60 mcg/0.5 mL SYR (4YR UP) IM ONE (19:30)
--- NOTE | 2018-04-22 21:41 | CON ---
DATE: 04/22/2018 CONSULT REQUEST: ER at [facility]. HISTORY OF PRESENT ILLNESS: A 57-year-old female. The patient is seen in bed 13 at the [facility] ER secondary to a fall. INDICATION: This 57-year-old female who was taking Seroquel approximately 30 minutes after had a fall with complete loss of consciousness. The patient does not recognize fall or approximately an hour after fall was unaware of the incident. On her fall, she had traumatized to the right side of face with noted epistaxis. She is now seen with her friend, the historian, and detailed history, she happens to be a patient of our office and has been seen here multiple times, but now seen sitting up in upright position. Cranial nerve number VII intact with right periorbital ecchymosis, mild, and right facial swelling; noted numbness or paresthesia; no click or trismus noted on range of motion of TMJ; complaining of severe pain and would like pain medicine. She does state there is a difference in her vision on cardinal hall. There is no true diplopia or restriction to the range of motion and states there is no blood coming from nose at this time. The patient is being admitted and worked up for the loss of consciousness by her primary medical doctor. Impression or CAT scan was reviewed and the CAT scan, acute mildly depressed right orbital floor fracture, moderate periorbital soft tissue swelling, no evidence of inferior rectus muscle entrapment, hemorrhagic fluid noted in right maxillary sinus. PHYSICAL EXAMINATION: There is an ecchymosis and swelling of the right side of the face, noted paresthesias. The zygomatic arch on palpation is intact. There is no fracture to the orbital rim and cardinal hall were intact throughout all phases. There is no blood noted in the nose and septum is midline. Mandible with full range of motion and no trauma to the mouth. Teeth were intact. The patient denied trismus on rotation. As stated with CAT scan, the orbital floor fracture appears an impression or impression orbital facial trauma, fracture to the orbital floor right side without entrapment of rectus muscles, small amount of fat noted, and small contents of blood noted. No active bleeding at this time. PLAN: Ophthalmology consult is recommended secondary to a questionable change in vision. A primary medical doctor consultation for psych, for medication usage, and training; from the perspective of the ears, nose and throat, no orbital reduction or fixation is needed at this time. The patient was advised to follow up in the office in one week or as needed. The patient is advised to alert medical staff in my office if there is any change with noted diplopia. ER doctor was notified for care and pain management. Jesus Manuel Prado DO
[2018-04-23] MEDS: Sodium Chloride 0.9% 1,000 ML IV SCH (02:28)
[2018-04-23 07:04] LABS: HEMOGLOBIN 12.7 g/dL (12.0-16.0); MEAN CELL VOLUME 87.2 fl (80.0-105.0); MEAN CORPUSCULAR HEMOGLOBIN 28.4 pg (25.0-35.0); MEAN CORPUSCULAR HGB CONC 32.6 g/dl (31.0-37.0); RBC 4.47 10^6/uL (3.5-6.1); RED CELL DISTRIBUTION WIDTH 12.8 % (11.5-14.5); WHITE BLOOD COUNT 5.2 10^3/uL (4.5-11.0)
[2018-04-23 07:43] LABS: ALB/GLOB RATIO 1.2 (1.1-1.8); ALBUMIN 3.8 g/dL (3.0-4.8); ALT/SGPT 27 U/L (7-56); AST/SGOT 22 U/L (14-36); BLOOD UREA NITROGEN 11 mg/dL (7-21); CALCIUM 9.5 mg/dL (8.4-10.5); GFR NON-AFRICAN AMERICAN > 60
[2018-04-23] MEDS: Pantoprazole 40 mg EC Tab PO SCH (10:28)
[2018-04-23] MEDS: POLYETHYLENE GLYCOL 3350 17 GM/Dose PACKET PO SCH (10:30)
--- NOTE | 2018-04-23 12:47 | CP.PCM.CON ---
History of Present Illness - History of Present Illness History of Present Illness: Neurology Consultation Note: Mrs. Davila is a 57-year-old woman, who was referred to me by Dr. Olsen, with a past medical history of HTN, PTSD, depression, bipolar, anxiety, ADHD, intussuception and pericardial cyst who presents to [facility] today after fall yesterday morning resulting in facial injury. According to the records, the patient had taken Xanax and Seroquel, then went to the kitchen and fell. She believes she lost consciousness for about [address] scan of the head was done in the ED and showed a left larson radiata and anterior limb of the internal capsule hypodensity. When I spoke with the patient, she had scattered speech and had episodes of sobbing intermittently. Appeared to be manic. She had difficulty answering questions directly and often went on tangential speech. Review of Systems - Review of Systems Systems not reviewed;Unavailable: Uncooperative, Psychotic Past Patient History - Infectious Disease Hx of Infectious Diseases: None - Tetanus Immunizations Tetanus Immunization: Unknown - Past Social History Smoking Status: Never Smoked - CARDIAC Hx Cardiac Disorders: Yes Hx Hypertension: Yes - PULMONARY Hx Respiratory Disorders: No - NEUROLOGICAL Hx Neurological Disorder: No - HEENT Hx HEENT Problems: No - RENAL Hx Chronic Kidney Disease: No - ENDOCRINE/METABOLIC Hx Endocrine Disorders: No - HEMATOLOGICAL/ONCOLOGICAL Hx Blood Disorders: No - INTEGUMENTARY Hx Dermatological Problems: No - MUSCULOSKELETAL/RHEUMATOLOGICAL Hx Musculoskeletal Disorders: Yes - GASTROINTESTINAL Hx Gastrointestinal Disorders: Yes Hx Constipation: Yes Hx Diverticulitis: Yes Other/Comment: Hpylori. Intussusception - GENITOURINARY/GYNECOLOGICAL Hx Genitourinary Disorders: No - PSYCHIATRIC Hx Psychophysiologic Disorder: Yes Hx Anxiety: Yes Hx Substance Use: No Other/Comment: PTSD - SURGICAL HISTORY Hx Section: Yes Other/Comment: breast augmentation - ANESTHESIA Hx Anesthesia Reactions: No Hx Malignant Hyperthermia: No Meds Allergies/Adverse Reactions: Allergies Allergy/AdvReac Type Severity Reaction Status Date / Time iodine Allergy ANAPHYLAXIS Verified 04/22/18 16:09 CRABS Allergy Severe ANAPHYLAXIS Uncoded 04/22/18 16:09 - Medications Medications: Current Medications Acetaminophen (Tylenol 325mg Tab) 650 mg PO Q6H PRN PRN Reason: Pain, moderate (4-7) Last Admin: 04/22/18 16:53 Dose: 650 mg Alprazolam (Xanax) 2 mg PO TID PRN; Protocol PRN Reason: Anxiety Last Admin: 04/23/18 10:28 Dose: 2 mg Docusate Sodium (Colace) 100 mg PO DAILY [facility] Last Admin: 04/23/18 10:29 Dose: 100 mg Escitalopram Oxalate (Lexapro) 20 mg PO DAILY [facility] Last Admin: 04/23/18 10:28 Dose: Not Given Gabapentin (Neurontin) 400 mg PO TID [facility]; Protocol Last Admin: 04/23/18 10:28 Dose: 400 mg Losartan Potassium (Cozaar) 100 mg PO DAILY [facility] Last Admin: 04/23/18 10:28 Dose: 100 mg Pantoprazole Sodium (Protonix Ec Tab) 40 mg PO DAILY [facility] Last Admin: 04/23/18 10:28 Dose: 40 mg Polyethylene Glycol (Miralax) 17 gm PO DAILY [facility] Last Admin: 04/23/18 10:30 Dose: 17 gm Tramadol HCl (Ultram) 50 mg PO TID PRN PRN Reason: Pain, severe (8-10) Zolpidem Tartrate (Ambien) 5 mg PO HS PRN; Protocol PRN Reason: Insomnia Last Admin: 04/22/18 21:36 Dose: 5 mg Physical Exam - Constitutional Appears: Agitated - Head Exam Head Exam: ATRAUMATIC, NORMAL INSPECTION, NORMOCEPHALIC - Eye Exam Eye Exam: EOMI, PERRL Pupil Exam: NORMAL ACCOMODATION, PERRL - ENT Exam ENT Exam: Mucous Membranes Moist, Normal Exam Additional comments: Right facial edema and echymosis noted and davon-oribital involvement - Neck Exam Neck exam: Positive for: Normal Inspection - Respiratory Exam Respiratory Exam: Clear to Auscultation Bilateral, NORMAL BREATHING PATTERN - Cardiovascular Exam Cardiovascular Exam: REGULAR RHYTHM, +S1, +S2 - GI/Abdominal Exam GI & Abdominal Exam: Normal Bowel Sounds, Soft. absent: Tenderness - Extremities Exam Extremities exam: Positive for: normal inspection - Back Exam Back exam: NORMAL INSPECTION - Neurological Exam Neurological exam: Alert, CN II-XII Intact, Normal Gait, Oriented x3, Reflexes Normal - Psychiatric Exam Psychiatric exam: Normal Affect, Normal Mood - Skin Skin Exam: Abrasion, Petechiae, Warm Results - Vital Signs Recent Vital Signs: Last Vital Signs Temp 98.0 F 04/23/18 06:00 Pulse 61 04/23/18 06:00 Resp 20 04/23/18 06:00 BP 122/83 04/23/18 06:00 Pulse Ox 98 04/23/18 06:00 - Labs Result Diagrams: 04/23/18 06:30 04/23/18 06:30 Labs: Laboratory Results - last 24 hr 04/22/18 04/22/18 04/22/18 13:20 13:20 13:20 WBC 5.8 RBC 4.73 Hgb 14.0 Hct 41.8 MCV 88.4 MCH 29.6 MCHC 33.5 RDW 13.4 Plt Count 308 MPV 10.7 Gran % 45.7 L Lymph % (Auto) 45.8 H [place] % (Auto) 7.3 H Eos % (Auto) 0.7 L Baso % (Auto) 0.5 Gran # 2.64 Lymph # (Auto) 2.7 [place] # (Auto) 0.4 Eos # (Auto) 0.0 Baso # (Auto) 0.03 PT 11.1 INR 0.97 APTT 30.9 Sodium 140 Potassium 3.8 Chloride 103 Carbon Dioxide 27 Anion Gap 14 BUN 12 Creatinine 0.8 Est GFR ( Amer) > 60 Est GFR (Non-Af Amer) > 60 Random Glucose 103 Calcium 9.9 Magnesium 2.2 Total Bilirubin 1.2 AST 24 ALT 29 Alkaline Phosphatase 105 Total Creatine Kinase Troponin I < 0.01 Total Protein 8.7 H Albumin 4.7 Globulin 4.0 Albumin/Globulin Ratio 1.2 04/22/18 04/23/18 04/23/18 13:20 06:30 06:30 WBC 5.2 RBC 4.47 Hgb 12.7 Hct 39.0 MCV 87.2 MCH 28.4 MCHC 32.6 RDW 12.8 Plt Count 258 MPV 10.0 Gran % Lymph % (Auto) [place] % (Auto) Eos % (Auto) Baso % (Auto) Gran # Lymph # (Auto) [place] # (Auto) Eos # (Auto) Baso # (Auto) PT INR APTT Sodium 139 Potassium 4.1 Chloride 106 Carbon Dioxide 28 Anion Gap 9 L BUN 11 Creatinine 0.7 Est GFR ( Amer) > 60 Est GFR (Non-Af Amer) > 60 Random Glucose 94 Calcium 9.5 Magnesium Total Bilirubin 1.2 AST 22 ALT 27 Alkaline Phosphatase 86 Total Creatine Kinase 51 55 Troponin I Total Protein 7.1 Albumin 3.8 Globulin 3.3 Albumin/Globulin Ratio 1.2 Assessment & Plan (1) Syncope Assessment and Plan: It is unknown whether or not the patient had a seizure. EEG is pending. There is evidence of chronic stroke on CT head, but will evaluate further with MRI brain and MRA of the head/neck. This is not the reason for her fall since she does not have any focal neurological deficits at this time. Polypharmacy is likely. Psychiatry consult would be appreciated. Continue telemetry. Aspirin 81 mg daily for secondary stroke prevention. Thank you for this consultation. Status: Acute
--- NOTE | 2018-04-23 15:46 | CP.PCM.PN ---
Subjective - Date & Time of Evaluation Date of Evaluation: 04/23/18 Time of Evaluation: 15:44 - Subjective Subjective: PGY1 Medicine Progress Note for Dr. Olsen patient seen and evaluated at bedside this morning. No acute complaints. No complaints overnight. Patient is able to walk around. 12 point ROS otherwise unremarkable. Objective - Vital Signs/Intake and Output Vital Signs (last 24 hours): Temp Pulse Resp BP Pulse Ox 98 F 87 20 142/92 H 98 04/23/18 12:00 04/23/18 14:00 04/23/18 12:00 04/23/18 12:00 04/23/18 06:00 Intake and Output: 04/23/18 04/23/18 06:59 18:59 Intake Total 120 Output Total 0 Balance 120 - Medications Medications: Current Medications Acetaminophen (Tylenol 325mg Tab) 650 mg PO Q6H PRN PRN Reason: Pain, moderate (4-7) Last Admin: 04/22/18 16:53 Dose: 650 mg Alprazolam (Xanax) 2 mg PO TID PRN; Protocol PRN Reason: Anxiety Last Admin: 04/23/18 10:28 Dose: 2 mg Docusate Sodium (Colace) 100 mg PO DAILY [facility] Last Admin: 04/23/18 10:29 Dose: 100 mg Escitalopram Oxalate (Lexapro) 20 mg PO DAILY [facility] Last Admin: 04/23/18 10:28 Dose: Not Given Gabapentin (Neurontin) 400 mg PO TID [facility]; Protocol Last Admin: 04/23/18 10:28 Dose: 400 mg Losartan Potassium (Cozaar) 100 mg PO DAILY [facility] Last Admin: 04/23/18 10:28 Dose: 100 mg Pantoprazole Sodium (Protonix Ec Tab) 40 mg PO DAILY [facility] Last Admin: 04/23/18 10:28 Dose: 40 mg Polyethylene Glycol (Miralax) 17 gm PO DAILY [facility] Last Admin: 04/23/18 10:30 Dose: 17 gm Tramadol HCl (Ultram) 50 mg PO TID PRN PRN Reason: Pain, severe (8-10) Last Admin: 04/23/18 15:35 Dose: 50 mg Zolpidem Tartrate (Ambien) 5 mg PO HS PRN; Protocol PRN Reason: Insomnia Last Admin: 04/22/18 21:36 Dose: 5 mg - Labs Labs: 04/23/18 06:30 04/23/18 06:30 PT 11.1 SECONDS (9.4-12.5) 04/22/18 13:20 INR 0.97 04/22/18 13:20 APTT 30.9 Seconds (25.1-36.5) 04/22/18 13:20 - Additional Findings Additional findings: - Constitutional Appears: Well, No Acute Distress - Head Exam Head Exam: NORMOCEPHALIC Additional comments: right aided facial edema, ecchymosis over right eye, edema and tenderness over the right side of the face, evidence of ruptured capillary in right eye - Eye Exam Eye Exam: EOMI, Periorbital swelling, Periorbital tenderness, PERRL Pupil Exam: NORMAL ACCOMODATION, PERRL. absent: Fixed, Irregular, Miosis, Mydriatic Additional comments: perorbital ecchymosis, evidence of rupture capillaries in right eye - ENT Exam ENT Exam: Mucous Membranes Moist - Respiratory Exam Respiratory Exam: Clear to Auscultation Bilateral, NORMAL BREATHING PATTERN - Cardiovascular Exam Cardiovascular Exam: REGULAR RHYTHM - GI/Abdominal Exam GI & Abdominal Exam: Soft. absent: Distended, Guarding, Tenderness - Extremities Exam Extremities exam: Positive for: normal capillary refill, pedal pulses present. Negative for: calf tenderness, pedal edema - Neurological Exam Neurological exam: Alert, Oriented x3 - Psychiatric Exam Psychiatric exam: Anxious, Depressed, Manic Additional comments: patient often oscillates between pressure speech and flight of ideas to tearfulness and expressions of depression Assessment and Plan - Assessment and Plan (Free Text) Assessment: 57-year-old Female with PMH HTN, depression, Bipolar disorder, PTSD, ADHD mu ltiple psychiatric medications s/p fall yesterday morning after taking seroquel and xanax. Sycopal Episode 2/2 medication vs cardia vs neurogenic - No evidence of any arrhythmia events on telemetry - ECHO pending - Cardiology consulted recs appreciated - EEG - CPK - Neurology consulted (Dr. Armas) recommendations appreciated - Repeat UA - Head CT negative for acute intracranial pathology - PT evaluate and treat for safety Right sided orbital floor fracture - ENT consulted by ED, recs appreciated - Opthomology consulted for changes in vision, recs appreciated - Tylenol as needed for pain - Maxillary CT showing orbital floor fracture and maxillary sinus hemorrhage Bipolar, PTSD, depressions, ADHD multiple psychiatric medications - Psych consulted, recs appreciated - Home meds restarted called to confirm with pharmacy PPX: - GI: Pantoprazole - DVT: SCD Patient seen examined and discussed with Dr. Raúl Moran PGY1
--- NOTE | 2018-04-23 16:54 | MRI ---
Date of service: 04/23/2018 PROCEDURE: MRI BRAIN WITHOUT CONTRAST HISTORY: fall, hypodensity on CT head COMPARISON: CT of the head 04/22/2018 TECHNIQUE: Multiplanar, multisequence MR images of the brain were obtained without intravenous contrast enhancement. FINDINGS: HEMORRHAGE: None DWI: No evidence of an acute or early subacute infarction. BRAIN PARENCHYMA: No mass effect or edema. There is a 10 mm chronic appearing infarct or ischemic change in the left larson radiata. There is no evidence of an acute infarct VENTRICLES: Unremarkable. No hydrocephalus. CRANIUM: Unremarkable. ORBITS: Grossly unremarkable. PARANASAL SINUSES/MASTOIDS: There is a fluid level in the right maxillary sinus. Minimal fluid within the mastoid air cells right greater than left VASCULAR SYSTEM: Skull base flow voids intact. OTHER FINDINGS: None. IMPRESSION: There is a 10 mm chronic appearing infarct or ischemic change in the left larson radiata. There is no evidence of an acute infarct
--- NOTE | 2018-04-23 16:57 | MRI ---
Date of service: 04/23/2018 PROCEDURE: Magnetic Resonance Angiography Brain HISTORY: possible stroke COMPARISON: None available. TECHNIQUE: 3D time of flight MR angiography of the intracranial arteries was performed. Rotating maximum intensity projection images were generated. FINDINGS: INTERNAL CAROTID ARTERIES: Unremarkable. The skull base, petrous, cavernous and supraclinoid segments are bilaterally widely patient. ANTERIOR CEREBRAL ARTERIES: Unremarkable. A1 and A2 segments are widely patent. Smaller distal branches unremarkable, as visualized. MIDDLE CEREBRAL ARTERIES: Unremarkable. M1 and M2 segments are widely patent. Perisylvian branches grossly symmetric. POSTERIOR CIRCULATION: Basilar Artery: Unremarkable. Distal Vertebral Arteries: Right vertebral terminates in the posterior inferior cerebellar artery Posterior Cerebral Arteries: Unremarkable. Posterior Inferior Cerebellar Arteries: Unremarkable. ANEURYSM/ VASCULAR MALFORMATIONS: None. OTHER FINDINGS: None. IMPRESSION: Unremarkable MR angiography of the brain.
--- NOTE | 2018-04-23 16:58 | MRI ---
Date of service: 04/23/2018 PROCEDURE: MR Angiography of the neck without contrast HISTORY: possible stroke COMPARISON: None available. TECHNIQUE: 3D [id number] angiography of the neck was performed. Rotating maximum intensity projection images of the cervical carotid and vertebral arteries were generated. The origins of the common carotid arteries were not visualized, which is a limitation inherent to the non-contrast time of flight technique. FINDINGS: RIGHT CAROTID ARTERIES: Common Carotid Artery: Normal. Carotid Bifurcation: Normal. Internal Carotid Artery:Normal. External Carotid Artery (proximal branches): Normal. LEFT CAROTID ARTERIES: Common Carotid Artery: Normal. Carotid Bifurcation: Normal. Internal Carotid Artery:Normal. External Carotid Artery (proximal branches): Normal. VERTEBRAL ARTERIES: Right Vertebral Artery: Normal. Left Vertebral Artery: Normal. OTHER FINDINGS: None. IMPRESSION: Normal MR Angiography of the neck.
--- NOTE | 2018-04-23 17:57 | CARD ---
APPROVED REPORT Date of service: 04/23/2018 EXAM: Two-dimensional and M-mode echocardiogram with Doppler and color Doppler. INDICATION Syncope 2D DIMENSIONS Left Atrium (2D)3.7 (1.6-4.0cm)IVSd1.0 (0.7-1.1cm) LVDd4.0 (3.9-5.9cm)PWd0.9 (0.7-1.1cm) LVDs2.7 (2.5-4.0cm)FS (%) 32.8 % LVEF (%)61.7 (>50%) M-Mode DIMENSIONS Aortic Root2.20 (2.2-3.7cm)Aortic Cusp Exc.1.90 (1.5-2.0cm) Aortic Valve AoV Peak Fmtuicvd850.0cm/Bina Peak GR.6mmHg Mitral Valve MV E Jsfsfmzw78.9cm/sMV A Bswdhigo59.4cm/sE/A ratio0.9 TDI E/Lateral E'0.0E/Medial E'0.0 Tricuspid Valve TR Peak Zcwzslqo345fi/sTR Peak Gr.21mmHg LEFT VENTRICLE The left ventricle is normal size. There is normal left ventricular wall thickness. The left ventricular function is normal.EF-60-65% There is normal LV segmental wall motion. Transmitral Doppler flow pattern is Grade III-reversible restrictive diastolic dysfunction. No left ventricle thrombus noted on this study. There is no ventricular septal defect visualized. There is no left ventricular aneurysm. There is no mass noted in the left ventricle. RIGHT VENTRICLE The right ventricle is normal size. There is normal right ventricular wall thickness. The right ventricular systolic function is normal. ATRIA The left atrium size is normal. The right atrium size is normal. The interatrial septum is intact with no evidence for an atrial septal defect. AORTIC VALVE The aortic valve is thickened but opens well. No aortic regurgitation is present. There is no aortic valvular stenosis. There is no aortic valvular vegetation. MITRAL VALVE The mitral valve is thickened but opens well. Mitral regurgitation is trace. There is no mitral valve stenosis. There is no evidence of mitral valve prolapse. TRICUSPID VALVE The tricuspid valve leaflets are thickened , but open well. There is trace tricuspid regurgitation.RVSP-21 mmof Hg. There is no tricuspid valve stenosis. There is no tricuspid valve prolapse or vegetation. PULMONIC VALVE The pulmonary valve is normal in structure. There is trace pulmonic valvular regurgitation. There is no pulmonic valvular stenosis. GREAT VESSELS The aortic root is normal in size. The ascending aorta is normal in size. The pulmonary artery is normal. The IVC is normal in size and collapses >50% with inspiration. PERICARDIAL EFFUSION There is no pleural effusion. There is no pericardial effusion. <Conclusion> Normal chamber Size. EF-60-65%. Trace MR/TR RVSP-21 mmof Hg.
--- NOTE | 2018-04-23 20:57 | CON ---
DATE: 04/23/2018 CARDIOLOGY CONSULTATION REASON FOR CONSULTATION: Possible syncopal episode. HISTORY OF PRESENT ILLNESS: The patient is a 57-year-old female, who has a history of depression, history of pericardial cyst, has changed obstetrics and gynecology professor recently from Dr. Byrd to Dr. Horne, and was told that only observation is needed for this pericardial biopsy. The patient found herself on the floor, was sustaining right eye bruising. The patient does not recall what happened and does not know for how long she stayed on this tiled floor, possibly 30 minutes or more, and 24 hours later, she came to the emergency room when she woke up, she called her ex-, and apparently got no help. The patient denies experiencing lightheadedness or dizziness. She is experiencing significant headache and generalized pain. The patient sustained no open wounds, but she stated that she had bruises on the back of her head. The patient denies any history of seizures. SOCIAL HISTORY: Former smoker, former EtOH abuser. PAST MEDICAL HISTORY: Depression, diverticulosis, low back pain, insomnia, PTSD. MEDICATIONS: Ambien 5 mg at bedtime, Colace 100 mg daily, Cozaar 100 mg daily, Lexapro 20 mg once a day, Neurontin take 400 mg t.i.d., and Xanax 12 mg intravenously t.i.d. p.r.n. REVIEW OF SYSTEMS: The patient did sustain upper lip bruises, but denies any tongue biting or urinary or fecal incontinence. PHYSICAL EXAMINATION: GENERAL: The patient is a middle-aged female, who does not appear to be in acute distress. VITAL SIGNS: Blood pressure 122/83, heart rate 67, temperature 98, respirations 20. HEENT: Right periorbital ecchymosis and edematous right upper lip. NECK: No JVD. CHEST: Clear. HEART: S1 and S2 regular. EXTREMITIES: No edema. LABORATORY DATA: Hemoglobin and hematocrit are 12.7 and 39, white count and platelet count are within normal limits. Today's SMA-7 is within normal limits except for an anion gap of 9. One set of troponin is negative. Urine drug screen is positive for benzodiazepines. EKG revealed normal sinus rhythm at a rate of 86. Chest x-ray is unremarkable except for COPD picture. Head CT scan without contrast, no acute intracranial abnormality, asymmetric focal abnormal density in the left larson radiata, and anterior limb of the internal capsule could represent age-indeterminate infarct, demyelination or focal chronic microangiopathic changes, correlates with MRI, may be performed for definitive evaluation. Cervical spine CT scan, no acute fracture, traumatic anterolisthesis. Maxillofacial CT scan, acute mildly depressed right orbital floor fracture and moderate periorbital soft tissue swelling. No evidence of inferior rectus muscle entrapment, hemorrhagic fluid in right maxillary sinus. ASSESSMENT: 1. Status post fall with right orbital fracture with hemorrhage in the right maxillary sinus. 2. History of depression. 3. Rule out seizure disorder. 5. History of pericardial cyst RECOMMENDATIONS: Continue telemetry monitoring. Obtain fall and seizure precautions. I would review the echocardiograph study that was performed today. Damaso Phan MD
[2018-04-24 06:02] VITALS: O2SAT 97
[2018-04-24 07:03] LABS: MEAN CELL VOLUME 88.4 fl (80.0-105.0); MEAN CORPUSCULAR HEMOGLOBIN 28.6 pg (25.0-35.0); MEAN CORPUSCULAR HGB CONC 32.3 g/dl (31.0-37.0); RBC 4.55 10^6/uL (3.5-6.1); WHITE BLOOD COUNT 5.8 10^3/uL (4.5-11.0)
[2018-04-24 07:31] LABS: ALB/GLOB RATIO 1.2 (1.1-1.8); ALBUMIN 3.9 g/dL (3.0-4.8); ALT/SGPT 26 U/L (7-56); AST/SGOT 19 U/L (14-36); BLOOD UREA NITROGEN 14 mg/dL (7-21); CALCIUM 9.6 mg/dL (8.4-10.5); GFR NON-AFRICAN AMERICAN > 60
--- NOTE | 2018-04-24 07:40 | CON ---
DATE: 04/23/2018 HISTORY OF PRESENT ILLNESS: The patient is a 57-year-old female with multiple medical issues. The patient was admitted status post fall resulting in facial injury. The patient has history of mental illness, PTSD, depression and bipolar disorder as well as anxiety. The patient was admitted on the medical side. Psych consult was called for evaluation of medications and possible polypharmacy. The patient was seen and examined. The patient presented with with overinclusive thought process is well as pressured speech. The patient reported that she fell because she had insomnia and she took Seroquel which was prescribed to her years back. The patient reported that most likely it was contributed to that fact, but she is not sure. The patient reported that she feels better right now. The patient reported that she sees psychiatrist in the community and she is on psychotropic medications. resident services manager was advised to call to the pharmacy and confirm medication. The patient reported that she was somewhat depressed because she lost her relationship with her boyfriend recently. The patient reported that overall she is doing well. She denied being depressed. Denied thoughts of killing herself or others. The patient reported that she never been admitted to the psychiatric inpatient unit. The patient reported that she is compliant with the medications, but considering the fact that the patient took pills of Seroquel which was prescribed her years back, it is doubtful. PHYSICAL EXAMINATION: VITAL SIGNS: Stable. Temperature 98.0, pulse 88, blood pressure 142/92, respirations 20. MEDICATIONS: Reviewed. The patient is on Xanax 2 mg three times day as needed for anxiety, Colace, Neurontin, Cozaar, Protonix, MiraLax, tramadol as well as Ambien. Labs reviewed. Coagulation reviewed. Chemistry reviewed. Urinalysis reviewed and toxicology was positive for benzodiazepines, but the patient claimed that she was prescribed medications. MENTAL STATUS EXAMINATION: The patient appears to be alert, oriented, talkative, friendly. The patient has black eye right on. The patient describes her mood to be okay. Affect was constricted but reactive. Mood congruent. Thought process overinclusive. Thought content, the patient denied psychotic symptoms. Denied thoughts of harming herself or others. Insight and judgment seems to be fair. Impulses are well controlled. IMPRESSION: Based on the history, the patient has bipolar disorder, posttraumatic stress disorder, anxiety spectrum disorder. This service writer also cannot include that the patient fall could be related to Seroquel which the patient was not prescribed recently. PLAN: We will confirm the medications. We will follow up on this patient tomorrow. The patient is not in any imminent in danger to self or others. The patient was advised to take medication as prescribed. Should you have any questions, give me a call back. Nica Haro MD
[2018-04-24] MEDS: POLYETHYLENE GLYCOL 3350 17 GM/Dose PACKET PO SCH (09:20)
[2018-04-24] MEDS: Pantoprazole 40 mg EC Tab PO SCH (09:21)
--- NOTE | 2018-04-24 09:22 | CP.PCM.PN ---
Subjective - Date & Time of Evaluation Date of Evaluation: 04/24/18 Time of Evaluation: 09:19 - Subjective Subjective: Neurology Progress Note for Dr. Joe Patient seen and examined at bedside. No acute overnight events. Patient complaining of pain on the right side of her face where she fell, however it is controlled with medications. Patient appears to be manic and her speech is tangential. Patient denies any weakness, numbness, CP, SOB, n/v/d, abdominal pain, fever, chills, LIGHT, or dizziness. Objective - Vital Signs/Intake and Output Vital Signs (last 24 hours): Temp Pulse Resp BP Pulse Ox 98 F 77 20 120/83 97 04/24/18 06:00 04/24/18 06:00 04/24/18 06:00 04/24/18 06:00 04/24/18 06:00 Intake and Output: 04/24/18 04/24/18 06:59 18:59 Intake Total 2240 Output Total 5 Balance 2235 - Medications Medications: Current Medications Acetaminophen (Tylenol 325mg Tab) 650 mg PO Q6H PRN PRN Reason: Pain, moderate (4-7) Last Admin: 04/22/18 16:53 Dose: 650 mg Alprazolam (Xanax) 2 mg PO TID PRN; Protocol PRN Reason: Anxiety Last Admin: 04/24/18 01:26 Dose: 2 mg Docusate Sodium (Colace) 100 mg PO DAILY [facility] Last Admin: 04/23/18 10:29 Dose: 100 mg Gabapentin (Neurontin) 400 mg PO TID IAN; Protocol Last Admin: 04/23/18 20:18 Dose: 400 mg Losartan Potassium (Cozaar) 100 mg PO DAILY [facility] Last Admin: 04/23/18 10:28 Dose: 100 mg Pantoprazole Sodium (Protonix Ec Tab) 40 mg PO DAILY IAN Last Admin: 04/23/18 10:28 Dose: 40 mg Polyethylene Glycol (Miralax) 17 gm PO DAILY IAN Last Admin: 04/23/18 10:30 Dose: 17 gm Tramadol HCl (Ultram) 50 mg PO TID PRN PRN Reason: Pain, severe (8-10) Last Admin: 04/23/18 15:35 Dose: 50 mg Zolpidem Tartrate (Ambien) 5 mg PO HS PRN; Protocol PRN Reason: Insomnia Last Admin: 04/23/18 23:15 Dose: 5 mg - Labs Labs: 04/24/18 06:20 04/24/18 06:20 PT 11.1 SECONDS (9.4-12.5) 04/22/18 13:20 INR 0.97 04/22/18 13:20 APTT 30.9 Seconds (25.1-36.5) 04/22/18 13:20 - Constitutional Appears: No Acute Distress - Head Exam Head Exam: NORMAL INSPECTION - Eye Exam Eye Exam: EOMI, Periorbital swelling (and ecchymosis), Periorbital tenderness, PERRL - ENT Exam ENT Exam: Mucous Membranes Moist, Normal Exam - Neck Exam Neck Exam: Normal Inspection - Respiratory Exam Respiratory Exam: Clear to Ausculation Bilateral, NORMAL BREATHING PATTERN. ab sent: Rales, Rhonchi, Wheezes - Cardiovascular Exam Cardiovascular Exam: REGULAR RHYTHM, RRR, +S1, +S2. absent: Gallop, Rubs, Murmur - GI/Abdominal Exam GI & Abdominal Exam: Soft. absent: Distended, Guarding, Tenderness, Rebound - Extremities Exam Extremities Exam: Normal Inspection - Back Exam Back Exam: NORMAL INSPECTION - Neurological Exam Neurological Exam: Alert, Awake, CN II-XII Intact, Oriented x3, Reflexes Normal Neuro motor strength exam: Left Upper Extremity: 5, Right Upper Extremity: 5, Left Lower Extremity: 5, Right Lower Extremity: 5 - Psychiatric Exam Psychiatric exam: Manic - Skin Skin Exam: Normal Color, Warm Assessment and Plan - Assessment and Plan (Free Text) Assessment: 57 yo F with PMH of HTN, PTSD, depression, bipolar, anxiety, ADHD, intussuception and pericardial cyst is being evaluated for syncopal event. EEG is normal. CVA ruled out as MRI and CT showed chronic infarct and MRA was negative and patient shows no focal neurological deficits. Polypharmacy is likely. Plan: - ASA 81 mg daily - Psych evaluation noted - Recommend Lunesta for sleep - Recommend outpatient sleep study - Patient neurological stable this time, we will sign off. Please reconsult as needed. Patient discussed in detail with Dr. Joe. eH Crespo, DO PGY2
--- NOTE | 2018-04-24 09:32 | PCM.EEG ---
Electroencephalogram Report - Electroencephalogram Report Procedure Date: 04/23/18 Medication: Xanax, Gabapentin, Tramadol Interpretation: Technical Information: This was a 16 -channel EEG, 1-channel EKG routine EEG performed using an LiveRSVP machine. Electrodes were applied using the 10/20 international placement system. Start; 11;20 End; 12;05 Total 45 min. Clinical Information: 57 y/o woman with alter mental status. During resting wakefulness there was a symmetric posterior dominant rhythm at 8.5-9.5 Hz, 30-50 uV, which was reactive to eye opening and closing. Drowsiness (11;39) was associated with fragmentation of the posterior dominant rhythm and with slow roving eye movements. Light sleep (11;44) was recorded and was characterized by central vertex waves, sleep spindles, and bilateral theta slowing. Hyperventilation was not performed. Photic stimulation was performed and there were no changes on the record. Focal abnormality; none ECG was associated with a normal sinus rhythm. Impression: This is a normal awake drowsy and sleep electroencephalogram.
[2018-04-24 09:33] LABS: HDL CHOLESTEROL 47 mg/dL (29-60)
[2018-04-24 09:44] LABS: LDL CHOLESTEROL 82 mg/dL (0-129)
--- NOTE | 2018-04-24 15:08 | PN ---
DATE: 04/24/2018 SUBJECTIVE: No reported arrhythmia. The patient denies any dizziness or chest pain. PHYSICAL EXAMINATION: VITAL SIGNS: Blood pressure 120/83, heart rate 77, temperature 98, respirations 20. HEENT: Right periorbital ecchymosis. NECK: No JVD. CHEST: Clear. HEART: S1, S2 regular. EXTREMITIES: No edema. LABORATORY DATA: Today's CBC is entirely within normal limits. Today's SMA-7 is within normal limits except for anion gap of 9. EEG was a normal study. Echo-cardiac study revealed normal chamber size with normal ejection fraction. Trace MR and trace TR. ASSESSMENT: 1. Consider seizure activity. 2. Non depressed right orbital fracture. 3. Chronic left larson radiata infarct. 4. Hypertension. RECOMMENDATIONS: Continue current Cozaar at 100 mg once a day. Start daily aspirin as there is no neurological contraindication. No further cardiac workup is indicated at this time. Damaso Phan MD
--- NOTE | 2018-04-24 16:40 | CP.PCM.DIS ---
Provider - Provider Date of Admission: 04/22/18 14:24 Attending physician: Jose Olsen MD Consults: 04/22/18 14:23 Consult [Otolaryngology Consult] Stat Consulting Provider: Sunil Colin Consulting Physician: Sunil Colin Reason for Consult: R orbital floor fracture s/p fall, please eval 04/22/18 15:38 Physician Consult Routine Comment: Consulting Provider: Damaso Phan Consulting Physician: Damaso Phan Reason for Consult: syncopal episode with fall 04/22/18 15:39 Physician Consult Stat Comment: Consulting Provider: Jos Armas Consulting Physician: Jos Armas Reason for Consult: syncopal episode with fall cause unknown 04/22/18 15:41 Physician Consult Routine Comment: Consulting Provider: Tae Payne Consulting Physician: Tae Payne Reason for Consult: fall with orbital injury 04/22/18 16:26 Consult [Physician Consult] Routine Comment: Consulting Provider: Nica Haro Consulting Physician: Nica Haro Reason for Consult: medication adjustment, polypharmacy and syncope 04/22/18 19:30 Nursing Referral for Wound Care Routine Comment: POST FALL,SYNCOPE,BRUISED R PERIORBITAL AREA,LIP Physician Instructions: Reason For Exam: EVALUATION Time Spent in preparation of Discharge (in minutes): 45 Hospital Course - Lab Results Lab Results: Micro Results 04/22/18 12:24 Urine,Clean Catch Urine Culture - Final No Growth (<1,000 CFU/ML) Most Recent Lab Values WBC 5.8 10^3/uL (4.5-11.0) 04/24/18 06:20 RBC 4.55 10^6/uL (3.5-6.1) 04/24/18 06:20 Hgb 13.0 g/dL (12.0-16.0) 04/24/18 06:20 Hct 40.2 % (36.0-48.0) 04/24/18 06:20 MCV 88.4 fl (80.0-105.0) 04/24/18 06:20 MCH 28.6 pg (25.0-35.0) 04/24/18 06:20 MCHC 32.3 g/dl (31.0-37.0) 04/24/18 06:20 RDW 13.0 % (11.5-14.5) 04/24/18 06:20 Plt Count 257 10^3/uL (120.0-450.0) 04/24/18 06:20 MPV 10.0 fl (7.0-11.0) 04/24/18 06:20 Gran % 45.7 % (50.0-68.0) L 04/22/18 13:20 Lymph % (Auto) 45.8 % (22.0-35.0) H 04/22/18 13:20 [place] % (Auto) 7.3 % (1.0-6.0) H 04/22/18 13:20 Eos % (Auto) 0.7 % (1.5-5.0) L 04/22/18 13:20 Baso % (Auto) 0.5 % (0.0-3.0) 04/22/18 13:20 Gran # 2.64 (1.4-6.5) 04/22/18 13:20 Lymph # (Auto) 2.7 (1.2-3.4) 04/22/18 13:20 [place] # (Auto) 0.4 (0.1-0.6) 04/22/18 13:20 Eos # (Auto) 0.0 (0.0-0.7) 04/22/18 13:20 Baso # (Auto) 0.03 K/mm3 (0.0-2.0) 04/22/18 13:20 PT 11.1 SECONDS (9.4-12.5) 04/22/18 13:20 INR 0.97 04/22/18 13:20 APTT 30.9 Seconds (25.1-36.5) 04/22/18 13:20 Sodium 139 mmol/L (132-148) 04/24/18 06:20 Potassium 4.1 mmol/L (3.6-5.0) 04/24/18 06:20 Chloride 103 mmol/L (98-107) 04/24/18 06:20 Carbon Dioxide 30 mmol/L (21-33) 04/24/18 06:20 Anion Gap 9 (10-20) L 04/24/18 06:20 BUN 14 mg/dL (7-21) 04/24/18 06:20 Creatinine 0.8 mg/dl (0.7-1.2) 04/24/18 06:20 Est GFR ( Amer) > 60 04/24/18 06:20 Est GFR (Non-Af Amer) > 60 04/24/18 06:20 Random Glucose 90 mg/dL (70-110) 04/24/18 06:20 Calcium 9.6 mg/dL (8.4-10.5) 04/24/18 06:20 Magnesium 2.2 mg/dL (1.7-2.2) 04/22/18 13:20 Total Bilirubin 1.1 mg/dL (0.2-1.3) 04/24/18 06:20 AST 19 U/L (14-36) 04/24/18 06:20 ALT 26 U/L (7-56) 04/24/18 06:20 Alkaline Phosphatase 85 U/L (38-126) 04/24/18 06:20 Total Creatine Kinase 51 U/L (35-230) 04/24/18 06:20 Troponin I < 0.01 ng/mL 04/22/18 13:20 Total Protein 7.2 g/dL (5.8-8.3) 04/24/18 06:20 Albumin 3.9 g/dL (3.0-4.8) 04/24/18 06:20 Globulin 3.3 gm/dL 04/24/18 06:20 Albumin/Globulin Ratio 1.2 (1.1-1.8) 04/24/18 06:20 Triglycerides 124 mg/dL (35-160) 04/24/18 09:00 Cholesterol 142 mg/dL (130-200) 04/24/18 09:00 LDL Cholesterol Direct 82 mg/dL (0-129) 04/24/18 09:00 HDL Cholesterol 47 mg/dL (29-60) 04/24/18 09:00 TSH 3rd Generation 2.77 mIU/mL (0.46-4.68) 04/24/18 09:00 Urine Color Yellow (YELLOW) 04/22/18 11:55 Urine Appearance Clear (CLEAR) 04/22/18 11:55 Urine pH 6.5 (4.7-8.0) 04/22/18 11:55 Ur Specific [place] 1.010 (1.005-1.035) 04/22/18 11:55 Urine Protein Negative mg/dL (<30 mg/dL) 04/22/18 11:55 Urine Glucose (UA) Negative mg/dL (NEGATIVE) 04/22/18 11:55 Urine Ketones Negative mg/dL (NEGATIVE) 04/22/18 11:55 Urine Blood Negative (NEGATIVE) 04/22/18 11:55 Urine Nitrate Negative (NEGATIVE) 04/22/18 11:55 Urine Bilirubin Negative (NEGATIVE) 04/22/18 11:55 Urine Urobilinogen 0.2 E.U./dL (<1 E.U./dL) 04/22/18 11:55 Ur Leukocyte Esterase Trace L[place]/uL (NEGATIVE) H 04/22/18 11:55 Urine RBC Negative /hpf (0-2) 04/22/18 11:55 Urine WBC 5 - 10 /hpf (0-6) 04/22/18 11:55 Ur Epithelial Cells 6 - 8 /hpf (0-5) 04/22/18 11:55 Urine Bacteria Mod (NEG) 04/22/18 11:55 Urine Opiates Screen Negative (NEGATIVE) 04/22/18 11:55 Urine Methadone Screen Negative (NEGATIVE) 04/22/18 11:55 Ur Barbiturates Screen Negative (NEGATIVE) 04/22/18 11:55 Ur Phencyclidine Scrn Negative (NEGATIVE) 04/22/18 11:55 Ur Amphetamines Screen Negative (NEGATIVE) 04/22/18 11:55 U Benzodiazepines Scrn Positive (NEGATIVE) H 04/22/18 11:55 U Oth Cocaine Metabols Negative (NEGATIVE) 04/22/18 11:55 U Cannabinoids Screen Negative (NEGATIVE) 04/22/18 11:55 - Hospital Course Hospital Course: Upon admission: Patient is a 57 yr old female with PMH HTN, PTSD, depression, bipolar, anxiety, ADHD, intussuception and pericardial cyst who presents to [facility] today after fall yesterday morning resulting in facial injury. Patient states that yesterday morning she took xanax and seroquel d/t anxiety/ insomnia. she then went to the kitchen to make coffee and fell. She awoke some time later on the floor after what she believes was approximately 15 minutes. she was at home alone and the fall was unwitnessed. She denies any history or family history of seizures. She indicates facial pain LIGHT and swelling since that time but denies any n/v, dizziness, confusion, difficulty concentrating, CP, palpitations, SOB, abdominal pain, bowel or bladder incontinence, dysuria and extremity pain or weakness. She admits to taking nurmerous psyciatric medications at home and is unsure of when she was prescribed the seroquel or how it came into her possession. She does not regularly take seroquel. During hospital stay patient was evaluated by Cardiology, Neurology, Psychiatry, ENT and Opthomology. CXR, Brain MRA, Cervical MRA, EEG and Echocardiogram showed no abnormalities. Brain MRI showed 10mm chronic appearing infarct in Left [place] radiata, Head CT and Maxillofacial CT showed right orbital floor fracture and maxillary sinus filled with hemorrhagic fluid. Opthomology and ENT indicated that this would be managed conservatively rather than surgically. No cardiac or neurologic causes for syncope were revealed during workup. Patient had no neurologic deficits during stay and was instructed to discontinue all medications that she had not been prescribed recently by her primary care doctor or psychiatrist. She tolerated her diet well throughout her stay and was able to ambulate easily with no difficulty. Upon Discharge patient was awae alert and oriented, afebrile nontachycardic, normotensive with no complaints. She was instructed to follow up with the opthomologist in their office on the day following discharge. An appointment was made for her at 11am and she agreed that her son would be available to drive her to the appointment. She was additionally instructed to return to the hospital if any of her symptoms recurred or any other concerning symptoms developed. At this time patient was deemed safe for discharge by Dr. Boyd and discharged from the hospital. - Date & Time of H&P Date of H&P: 04/24/18 Time of H&P: 08:15 Discharge Exam - Head Exam Head Exam: NORMAL INSPECTION Discharge Plan - Follow Up Plan Condition: GUARDED Disposition: HOME/ ROUTINE Instructions: Syncope (DC), Syncope (GEN) Additional Instructions: Upon Discharge you have been instructed to discontinue all medications that are not currently prescribed by your pyschiatrist or physician. Additionally do not take any of your medications while drinking alcohol. Please follow up with on SaturdayApril 25 at 11am with: Dr. Popeye Payne (Hearing Examiner) [id number] [place] [address] Please follow up with your primary care doctor within 3-5 days. Please follow up with your psychiatrist as well for medication adjustments. Please follow up with the neurologist who has recommended that you undergo a sleep study outpatient for insomnia. If your symptoms return please return to the nearest emergency room for evaluation. Referrals: Tae Payne MD [Staff Provider] - Chasidy Joe MD [Staff Provider] -
[2018-04-24 17:55] VITALS: BP 117/81; PULSE 78; RESP 20; TEMP 98.8
--- NOTE | 2018-04-24 19:06 | PN ---
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 The patient was admitted on the medical side status post fall. Psych consult was called to rule out polypharmacy. Please see this account underwriter's note for more detailed information. Briefly, the patient took prescribed Seroquel at the nighttime which could contribute to the patient's fall. The patient was seen today. The patient presented to be alert, oriented, pleasant, talkative. The patient reported that she feels better. She slept well last night. The patient has improved insight. The patient is aware that she should not take medication which was not prescribed to her. The patient was talking about her outpatient psychiatrist as well as therapist. The patient is in the process of seeing the new therapist twice a week. The patient reported that she has her followup appointment with her regular psychiatrist. The patient was advised to take medication as prescribed and not to take any unprescribed medication. The patient verbalized understanding. VITAL SIGNS: Seem to be stable. Temperature 98.1, pulse is 70, blood pressure 130/89, respiration 21, oxygen saturation is 97. MEDICATIONS: Reviewed. The patient is on Xanax 2 mg three times a day as needed. The patient is on Colace, Neurontin, Motrin, Cozaar, Protonix and MiraLax. LABORATORY DATA: Reviewed. Hematology reviewed. Coagulation reviewed. Chemistry reviewed. Urinalysis reviewed. Toxicology reviewed which was positive for benzodiazepines. Notes from Neurology team reviewed. 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 There is no new pathology. IMPRESSION: Rule out medication-induced confusion and fall. The patient took Seroquel which was not prescribed to her. The patient was on multiple psychotropic medications. At the same time, the patient has her own psychiatrist who is prescribing all of the medications. The patient was advised to see psychiatrist as fast as possible. The patient verbalized understanding. At the present moment, the patient is on Xanax only, which is short acting and less cumulative effect. MENTAL STATUS EXAMINATION: The patient presented to be alert, oriented, pleasant, cooperative, talkative. Mood described as okay, "I feel better." Affect was reactive, mood congruent. Thought process seems to be overinclusive, but not tangential or circumstantial. Thought content; the patient denies visual, auditory or tactile hallucinations; denied paranoid ideation. The patient denied thoughts of harming herself or others. Denied intent or plan. Insight and judgment seem to be improving. Impulses are well controlled. IMPRESSION: The patient is status post fall. The patient has history of post-traumatic stress disorder, bipolar disorder. The patient does not have history of suicidal attempts and denied history of being admitted to the psychiatric inpatient unit. PLAN: Continue current management. Continue current medications. The patient has followup with her psychiatrist as well as therapist. The patient pose no imminent danger to self or others. Education was provided. The patient was advised not to take medication which is not prescribed to her. The patient verbalized understanding. The patient is not psychotic or agitated. This account underwriter will sign off. Thank you very much. Nica Haro MD
== END 2018-04-24 19:36 | disposition home or self-care (01) | DRG 125 ==
LOC: ED 10:39 → ERH 14:24 → 2RNO 20:39
PROVIDERS: ADMIT Internal Medicine; ATTEND Internal Medicine
DX: S02.31XA Fracture of orbital floor, right side, initial encounter for closed fracture (principal); M54.2 Cervicalgia; R55 Syncope and collapse; I10 Essential (primary) hypertension; G47.00 Insomnia, unspecified; F31.9 Bipolar disorder, unspecified; F43.10 Post-traumatic stress disorder, unspecified; F90.9 Attention-deficit hyperactivity disorder, unspecified type; W19.XXXA Unspecified fall, initial encounter; Z79.899 Other long term (current) drug therapy; Z87.891 Personal history of nicotine dependence